=== PATIENT | female | born 1935 | race Caucasian/White ===

== ENCOUNTER 2021-07-17 12:33 | Inpatient (IN) | payer OTHER ==
[2021-07-17] MEDS ORDERED: NALOXONE HCL 2 MG/2 ML VIAL ONE (12:35)
--- OUTSIDE RECORDS SUMMARY | 2021-07-17 12:37 | XMS REPORT | Continuity of Care Document ---
:1935 Author Organization [facility] t Address [address] [place] [address] Care Team Providers Name Role Phone Ilana Primary Care Physician Sara HERNANDEZ Attending Clinician Unavailable Jarrell DILL, S Attending Clinician Gil FRANCIS L Attending Clinician Arabella JIMENEZ Attending Clinician Unavailable Payers Payer Name Policy Type Policy Number Effective Date Expiration Date [facility] [id number] 2020 [facility] 00:00:00 PPO Problems Condition Condition Condition Status Onset Resolution Last Treating Co mments Source Name Details Category Date Date Treatment Clinician Date Elevated Elevated Disease Active 2020-07 Unive rs brain brain 0-11 ity of natriure[place] nat[place]ure[place] c peptide c peptide 00 Medi lalo (BNP) (BNP) Branch level level Closed Closed Disease Active 2020-07 [facility] left hip left hip 0-06 [place] of fracture[place], [place] initial 00 Medical encounter encounter Bran ch Encounter Encounter Disease Active 2020-07 Uni vers for for 0-06 ity of pre-operat pre-operat 00:00[place] samreen samreen 00 Medical cardiovasc cardiovasc Br anch ular ular clearance clearance Nonrheumat Nonrheumat Disease Active 2020-07 U nivers ic aortic ic aortic 0-06 ity of valve valve 00:00: [place] stenosis stenosis 00 Medica l Branch Essential Essential Disease Active 2020-07 Uni vers hypertensi hypertensi 0-06 it y of on on 00:00: [place] [facility] 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 0-06 [place]y of thrombosis thrombosis 00:00: [place] (DVT) (DVT) 00 Medical Branch Acute Acute Disease Active 2020-07 Univers kidney kidney 0-06 ity of injury injury 00:00: [place] superimpos superimpos 00 Me dical ed on CKD ed on CKD Bran ch Fall Fall Disease Active 2019-07 Univers 2-11 ity of 00:00: [place] [facility] Hip Hip Disease Active 2019-07 Univers fracture fracture 2-11 ity of 00:00: [place] [facility] Closed Closed Disease Active 2019-07 Overview: Univer s displaced displaced 2-10 Formattin i ty of fracture fracture 00:00: g of this Josh as of right of right 00 note Medica l femoral femoral might be Branch neck neck different from the original. Added automatic ally from request for surgery [id number] Age-relate Age-relate Disease Active U nivers d d ity of osteoporos osteoporos [place] is with is with Medical current current Branch pathologic pathologic al al fracture fracture with with routine routine healing healing Allergies, Adverse Reactions, Alerts Allergy Allergy Status Severity Reaction(s) Onset Inactive Treating Comm ents Source Name Type Date Date Clinician Levoflox Propensi Active Unknown - Uni vers acin ty to See comments 7-17 ity of adverse 00:00: [place] reaction 00 Medical s Branch Penicill Propensi Active Unknown - Uni vers ins ty to See comments 7-17 ity of adverse 00:00: [place] reaction 00 Medical s Branch LEVOFLOX DRUG Active Unknown-Cmnt [place] ACIN INGREDI 7-17 ity of 00:00: [place] [facility] PENICILL Drug Active Unknown-Cmnt 2017-0 [place] INS Class 7-17 ity of 00:00: [place] [facility] Social History Social Habit Start Date Stop Date Quantity Comments Source Exposure to Not sure [facility] SARS-CoV-2 [place] Medical (event) Branch Alcohol intake 2021-07-03 2021-07-03 Current [facility] 00:00:00 00:00:00 non-drinker of [facility] alcohol Branch (finding) Education 2021-05-03 2021-05-03 21 University of 00:00:00 00:00:00 [facility] Tobacco use and 2018-02-11 2018-02-11 Never used Universit y of exposure 00:00:00 00:00:00 [facility] Sex Ass[birth year] At [birth year] Universit y of 00:00:00 00:00:00 [facility] Smoking Status Start Date Stop Date Source Never smoker [facility] [place] [facility] Medications Ordered Filled Start Stop Current Ordering Indication Dosage Frequency Signature Comments Components Source Medication Medication Date Date Medication? Clinician (SIG) Name Name warfarin 2020-07 Yes 1mg Take 1 mg [place] mg tablet 0-15 by mouth ity of 01:25: every [place] 03 evening. Medical Branch memantine 2020-07 Yes 8mg Take 8 mg Uni vers HCl 0-15 by mouth. ity of (MEMANTINE 01:25: [place] ORAL) 03 Medical Branch acetaminoph 2020-07 Yes Take by [place] en with 0-15 mouth ity of codeine 01:25: daily. [place] (TYLENOL-CO 03 Medical DEINE #3 Branch ORAL) ferrous 2020-07 Yes 325mg Take 325 Unive rs sulfate 0-15 mg by ity of (IRON) 325 01:25: mouth 3 [place] mg (65 mg 03 (three) Medical iron) times Branch tablet daily with meals. vitamin C 2020-07 Yes 100mg Take 100 Uni vers (VITAMIN C) 0-15 mg by ity of 100 mg 01:25: mouth [place] tablet 03 daily. Medical Branch Folcroft-3-DHA 2020-07 Yes Take by [place] -EPA-Fish 0-15 mouth ity of Oil (FISH 01:25: daily. [place] OIL) 1,200 03 Medical (144-216) Branch mg Cap tamsulosin 2020-07 Yes Take by Uni vers (FLOMAX) 0-15 mouth as ity of 0.4 mg 24 01:25: needed for [place] hr capsule 03 Other Medical (chronic Branch kidney stones.). warfarin 2020-07 Yes 1mg Take 1 mg [place] mg tablet 0-15 by mouth ity of 01:25: every [place] 03 evening. Medical Branch memantine 2020-07 Yes 8mg Take 8 mg Uni vers HCl 0-15 by mouth. ity of (MEMANTINE 01:25: [place] ORAL) 03 Medical Branch acetaminoph 2020-07 Yes Take by [place] en with 0-15 mouth ity of codeine 01:25: daily. [place] (TYLENOL-CO 03 Medical DEINE #3 Branch ORAL) ferrous 2020-07 Yes 325mg Take 325 Unive rs sulfate 0-15 mg by ity of (IRON) 325 01:25: mouth 3 [place] mg (65 mg 03 (three) Medical iron) times Branch tablet daily with meals. vitamin C 2020-07 Yes 100mg Take 100 Uni vers (VITAMIN C) 0-15 mg by ity of 100 mg 01:25: mouth [place] tablet 03 daily. Medical Branch Folcroft-3-DHA 2020-07 Yes Take by [place] -EPA-Fish 0-15 mouth ity of Oil (FISH 01:25: daily. [place] OIL) 1,200 03 Medical (144-216) Branch mg Cap tamsulosin 2020-07 Yes Take by Uni vers (FLOMAX) 0-15 mouth as ity of 0.4 mg 24 01:25: needed for [place] hr capsule 03 Other Medical (chronic Branch kidney stones.). warfarin 1 2020-07 Yes 1mg Take 1 mg [place] mg tablet 0-15 by mouth ity of 01:25: every [place] 03 evening. Medical Branch memantine 2020-07 Yes 8mg Take 8 mg Uni vers HCl 0-15 by mouth. ity of (MEMANTINE 01:25: [place] ORAL) 03 Medical Branch acetaminoph 2020-07 Yes Take by [place] en with 0-15 mouth ity of codeine 01:25: daily. [place] (TYLENOL-CO 03 Medical DEINE #3 Branch ORAL) ferrous 2020-07 Yes 325mg Take 325 Unive rs sulfate 0-15 mg by ity of (IRON) 325 01:25: mouth 3 [place] mg (65 mg 03 (three) Medical iron) times Branch tablet daily with meals. vitamin C 2020-07 Yes 100mg Take 100 Uni vers (VITAMIN C) 0-15 mg by ity of 100 mg 01:25: mouth [place] tablet 03 daily. Medical Branch Folcroft-3-DHA 2020-07 Yes Take by [place] -EPA-Fish 0-15 mouth ity of Oil (FISH 01:25: daily. [place] OIL) 1,200 03 Medical (144-216) Branch mg Cap tamsulosin 2020-07 Yes Take by Uni vers (FLOMAX) 0-15 mouth as ity of 0.4 mg 24 01:25: needed for [place] hr capsule 03 Other Medical (chronic Branch kidney stones.). latanoprost 2020-07 Yes 1[drp] Place 1 U nivers 0.005 % 0-13 Drop in ity of ophthalmic 13:41: both eyes [place] drops 45 every Medical evening. Branch pantoprazol 2020-07 Yes 40mg Take 40 mg Univers e 40 mg EC 0-13 by mouth ity o f tablet 13:41: daily. [place] [address] Medical Branch metoprolol 2020-07 Yes 100mg Take 100 [place] succinate 0-13 mg by ity of XL 100 mg 13:41: mouth [place] 24 hr 45 daily. Medical tablet Branch galantamine 2020-07 Yes 12mg Take 12 mg Univers 12 mg 0-13 by mouth 2 ity of tablet 13:41: (two) [place] 45 times Medical daily. Branch multivit 2020-07 Yes 1{tbl} Take 1 Unive rs with 0-13 tablet by ity of calcium,iro 13:41: mouth [place] n,min 45 daily. Medical (WOMEN'S Branch MULTIPLE VITAMINS ORAL) SERTraline 2020-07 Yes 25mg Take 25 mg U nivers 25 mg 0-13 by mouth ity of tablet 13:41: daily. [place] [address] Medical Branch latanoprost 2020-07 Yes 1[drp] Place 1 U nivers 0.005 % 0-13 Drop in ity of ophthalmic 13:41: both eyes [place] drops 45 every Medical evening. Branch pantoprazol 2020-07 Yes 40mg Take 40 mg Univers e 40 mg EC 0-13 by mouth ity o f tablet 13:41: daily. [place] 45 Medical Branch metoprolol 2020-07 Yes 100mg Take 100 [place] succinate 0-13 mg by ity of XL 100 mg 13:41: mouth [place] 24 hr 45 daily. Medical tablet Branch galantamine 2020-07 Yes 12mg Take 12 mg Univers 12 mg 0-13 by mouth 2 ity of tablet 13:41: (two) [place] 45 times Medical daily. Branch multivit 2020-07 Yes 1{tbl} Take 1 Unive rs with 0-13 tablet by ity of calcium,iro 13:41: mouth [place] n,min 45 daily. Medical (WOMEN'S Branch MULTIPLE VITAMINS ORAL) SERTraline 2020-07 Yes 25mg Take 25 mg U nivers 25 mg 0-13 by mouth ity of tablet 13:41: daily. [address] latanoprost 2020-07 Yes 1[drp] Place 1 U nivers 0.005 % 0-13 Drop in ity of ophthalmic 13:41: both eyes [place] drops 45 every Medical evening. Branch pantoprazol 2020-07 Yes 40mg Take 40 mg Univers e 40 mg EC 0-13 by mouth ity o f tablet 13:41: daily. [address] metoprolol 2020-07 Yes 100mg Take 100 [place] succinate 0-13 mg by ity of XL 100 mg 13:41: mouth [place] 24 hr 45 daily. Medical tablet Branch galantamine 2020-07 Yes 12mg Take 12 mg Univers 12 mg 0-13 by mouth 2 ity of tablet 13:41: (two) [place] 45 times Medical daily. Branch multivit 2020-07 Yes 1{tbl} Take 1 Unive rs with 0-13 tablet by ity of calcium,iro 13:41: mouth [place] n,min 45 daily. Medical (WOMENS Branch MULTIPLE VITAMINS ORAL) SERTraline 2020-07 Yes 25mg Take 25 mg U nivers 25 mg 0-13 by mouth ity of tablet 13:41: daily. [address] Immunizations Ordered Filled Immunization Date Status Comments [facility] e Immunization Name Name Pneumococcal 2021-05-10 Completed University o f Polysaccharide, 00:00:00 [place] Med ical PPSV23 (PNEUMOVAX) Branch Pneumococcal 2021-05-10 Completed [place] o f Polysaccharide, 00:00:00 [place] Med ical PPSV23 (PNEUMOVAX) Branch Pneumococcal 2021-05-10 Completed [place] o f Polysaccharide, 00:00:00 [place] Med ical PPSV23 (PNEUMOVAX) Branch Vital Signs Vital Name Observation Time Observation Value Comments Source Body height 2021-05-18 14:37:00 165 cm [facility] Body weight 2021-05-18 14:37:00 77.111 kg [facility] BMI 2021-05-18 14:37:00 28.32 kg/m2 Universi ty [facility] Procedures This patient has no known procedures. Encounters Start End Encounter Admission Attending Care Care Encounter Source Date/Time Date/Time Type Type Clinicians Facility Department ID 2021-07-03 2021-07-03 Outpatient R JARRELL [facility] [id number] Univers 14:05:00 23:59:00 FR[facility] 2021-07-03 2021-07-[address] [facility] [id number] Univers 14:05:00 23:59:00 Encounter Fran ZAPATA [id number] [facility] [id number] Josh as KALYAN?BLEA [id number] Al kelli RUVALCABA [id number] [facility] 2021-07-03 2021-07-03 [id number] Univers 14:05:00 14:05:00 FRAN [id number] [facility] 2021-05-18 2021-05-[address] [facility] [id number] Univers 09:30:00 09:45:00 Visit Nathaniel Bell [facility] [id number] it y of [place] [id number] Josh as KALYAN?BLEA [id number] Al kelli RUVALCABA [id number] [facility] 2021-05-18 2021-05-18 [facility] [id number] Univers 09:30:00 09:30:00 NATHANIEL [facility] Results This patient has no known results.
[2021-07-17] MEDS ORDERED: NA CHLORIDE 0.9% 1,000 ML ONE ×2 (12:44→14:18)
[2021-07-17 13:09] LABS: Absolute Lymphocytes (CBC) 1.4 K/uL (0.7-4.9); Basophils % 0.1 % (0-1.3); Hematocrit 37.7 % (36.0-45.0); Lymphocytes % 2.9 % (15.3-44.8); RBC Red Blood Cell Count 4.14 M/uL (3.86-4.86)
[2021-07-17 13:18] LABS: Protime INR 1.71
[2021-07-17 13:32] LABS: Albumin 1.6 g/dL (3.4-5.0); Bilirubin Direct 0.2 mg/dL (0-0.2); Bilirubin Total 0.6 mg/dL (0.2-1.0); Protein, Total 5.2 g/dL (6.4-8.2); Troponin (Emerg Dept Use Only) 0.31 ng/mL (0.0-0.045)
[2021-07-17 13:34] LABS: Potassium 2.8 mmol/L (3.5-5.1)
[2021-07-17 13:48] LABS: Urine Blood Negative (Negative); Urine Glucose Negative (Negative); Urine Protein 1+ (Negative)
[2021-07-17 14:04] LABS: Urine Amorphous Sediment 1+ /HPF (NONE SEEN); Urine Bacteria 20-50 /HPF (<20); Urine Mucus 2+ /HPF (NONE SEEN); Urine RBC <5 /HPF (NONE SEEN); Urine Urothelial Cells <5 /HPF (NONE SEEN)
[2021-07-17] MEDS ORDERED: CEFEPIME 1 GM/VIAL ONE (14:18)
[2021-07-17] MEDS ORDERED: VANCOMYCIN 1 GM/VIAL ONE (14:18)
--- NOTE | 2021-07-17 14:18 | EDPHYS ---
Physician Documentation [facility] Name: Laura Del Castillo Age: 85 yrs Sex: Female : 1935 Arrival Date: 07/17/2021 Time: 12:40 Bed 2 Private MD: ED Physician Joce Austin HPI: 07/17 14:03 This 85 yrs old Female presents to ER via EMS with complaints of Diarrhea/Hypotension. jr8 14:07 Is a 85-year-old female that presented to the emergency room via EMS after being jr8 calling out by the [place] [facility] for continued diarrhea with altered mentation now. EMS stated that she was hypotensive on scene. Patient arrived in the 60s systolic upon arrival with minimal responsiveness but maintaining airway. They stated that she had Tylenol 3 at the [place] [facility] as well prior to arrival but unknown at what time.. It is unknown whether or not the patient has had similar symptoms in the past. It is unknown whether or not the patient has recently seen a physician. Historical: - Allergies: 12:51 Penicillins; al4 12:51 levaquin; al4 - Immunization history:: Adult Immunizations unknown. - Social history:: Smoking status: unknown. ROS: 14:07 Unable to obtain ROS due to altered mental status, baseline dementia. jr8 Exam: 14:07 Neck: Trachea midline, no thyromegaly or masses palpated, and no cervical jr8 lymphadenopathy. Supple, full range of motion Cardiovascular: Regular rate and rhythm with a normal S1 and S2. No gallops, murmurs, or rubs. Normal PMI, no JVD. No pulse deficits. Respiratory: Lungs have equal breath sounds bilaterally, clear to auscultation and percussion. No rales, rhonchi or wheezes noted. No increased work of breathing, no retractions or nasal flaring. Abdomen/GI: Soft with normal bowel sounds. No distension or tympany. Skin: Warm, dry with normal turgor. Normal color with no rashes, no lesions, and no evidence of cellulitis. Small sacral decubitus wound to the buttock noted MS/ Extremity: Pulses equal, no cyanosis. Neurovascular intact. Full, normal range of motion. 14:07 Eyes: Pupils: pinpoint, bilaterally, Extraocular movements: intact throughout, Conjunctiva: normal, Corneas: are normal, Sclera: no appreciated abnormality, Lids and lashes: appear normal. 14:07 Neuro: Orientation: Not oriented to person, place, time, situation, Mentation: unable to follow commands, Memory: unable to test, Motor: moves all fours, Sensation: no obvious gross deficits, seizure activity, is not displayed by the patient, Abnormal movements: there are no abnormal movements. Vital Signs: 12:41 BP 64 / 31; Pulse 94; Resp 20; Temp 98.0; al4 12:50 BP 95 / 52; Pulse 114; Resp 30 S; Pulse Ox 94% on R/A; al4 12:57 BP 95 / 52; jd3 13:00 BP 83 / 47; Pulse 112; Resp 28 S; Pulse Ox 97% on R/A; al4 13:35 BP 91 / 41; Pulse 101; Resp 24 S; Pulse Ox 99% on R/A; al4 13:45 BP 86 / 49; Pulse 113; Resp 24 S; Pulse Ox 95% on R/A; al4 13:55 BP 95 / 52; Pulse 109; Resp 23 S; Pulse Ox 100% on R/A; al4 14:05 BP 98 / 53; Pulse 109; Resp 22 S; Pulse Ox 98% on R/A; al4 14:20 BP 91 / 51; Pulse 105; Resp 22 S; Pulse Ox 97% on R/A; al4 14:30 BP 88 / 47; Pulse 114; Resp 23 S; Pulse Ox 95% on R/A; al4 14:40 BP 85 / 49; Pulse 108; Resp 18 S; Pulse Ox 97% on R/A; al4 14:50 BP 93 / 54; Pulse 103; Resp 12 S; Pulse Ox 97% on R/A; al4 15:00 BP 85 / 55; Pulse 107; Resp 20 S; Pulse Ox 98% on R/A; al4 15:30 BP 87 / 63; Pulse 107; Resp 22 S; Pulse Ox 94% on R/A; al4 16:00 BP 81 / 55; Pulse 108; Resp 19; Pulse Ox 97% ; al4 16:30 BP 107 / 67; Pulse 120; Resp 17 S; Pulse Ox 98% on R/A; al4 16:50 BP 96 / 57; Pulse 136; Resp 18 S; Pulse Ox 98% on R/A; al4 17:25 BP 85 / 68; Pulse 136; Resp 19 S; Pulse Ox 97% on R/A; al4 17:45 BP 109 / 67; Pulse 144; Resp 18 S; Pulse Ox 95% on R/A; al4 18:15 BP 94 / 67 LA Supine (auto/reg); Pulse 118 MON; mb4 18:25 BP 98 / 64; Pulse 119; Resp 18 S; Pulse Ox 96% on R/A; al4 18:45 BP 105 / 56; Pulse 123; Resp 20 S; Pulse Ox 95% on R/A; al4 19:05 BP 100 / 80; Pulse 120; Resp 18 S; Pulse Ox 97% on R/A; al4 13:00 provider at bedside, aware of BP al4 MDM: 12:42 Patient medically screened. [facility] 14:16 Data reviewed: vital signs, nurses notes, lab test result(s), EKG, radiologic studies, [facility] CT scan, plain films. Data interpreted: Pulse oximetry: on room air is 98 %. Interpretation: normal. Counseling: I had a detailed discussion with the patient and/or guardian regarding: the historical points, exam findings, and any diagnostic results supporting the discharge/admit diagnosis, lab results, radiology results, the need for further work-up and treatment in the hospital. 07/17 12:43 Order name: Basic Metabolic Panel; Complete Time: 13:56 [facility] 07/17 12:43 Order name: Blood Culture Adult (2) [facility] 07/17 12:43 Order name: CBC with Diff; Complete Time: 16:54 [facility] 07/17 12:43 Order name: CPK; Complete Time: 13:56 [facility] 07/17 12:43 Order name: LFT's; Complete Time: 13:56 [facility] 07/17 12:43 Order name: Lactate; Complete Time: 13:56 [facility] 07/17 12:43 Order name: Lipase; Complete Time: 13:56 [facility] 07/17 12:43 Order name: Procalcitonin; Complete Time: 13:56 [facility] 07/17 12:43 Order name: Protime (+inr); Complete Time: 13:56 [facility] 07/17 12:43 Order name: Ptt, Activated; Complete Time: 13:56 [facility] 07/17 12:43 Order name: Troponin (emerg Dept Use Only); Complete Time: 13:56 [facility] 07/17 12:43 Order name: Urine Microscopic Only; Complete Time: 14:10 [facility] 07/17 12:52 Order name: Fecal Leukocyte Stain [facility] 07/17 12:52 Order name: Rotavirus Antigen [facility] 07/17 12:43 Order name: Chest Single View XRAY; Complete Time: 14:33 [facility] 07/17 12:52 Order name: Stool Culture [facility] 07/17 12:52 Order name: CDIFF [facility] 07/17 13:17 Order name: Manual Differential; Complete Time: 16:54 [facility] 07/17 13:48 Order name: Urine Dipstick-Ancillary; Complete Time: 13:56 [facility] 07/17 14:06 Order name: Urine Culture [facility] 07/17 14:12 Order name: CT Abd/Pelvis - Without Contrast; Complete Time: 17:39 [facility] 07/17 14:42 Order name: COVID-19 SARS RT PCR (Document "Date of Onset" if Symptomatic); Complete [facility] Time: 16:24 07/17 16:05 Order name: XRAY Chest (1 view); Complete Time: 17:06 [facility] 07/17 17:21 Order name: Lactate Sepsis 2 HR Follow-up; Complete Time: 17:31 [facility] 07/17 12:43 Order name: Accucheck; Complete Time: 12:56 [facility] 07/17 12:43 Order name: Cardiac monitoring; Complete Time: 12:56 [facility] 07/17 12:43 Order name: Cath; Complete Time: 13:39 [facility] 07/17 12:43 Order name: EKG - Nurse/Tech; Complete Time: 12:56 [facility] 07/17 12:43 Order name: IV Saline Lock - Large Bore; Complete Time: 12:56 [facility] 07/17 12:43 Order name: Labs collected and sent; Complete Time: 12:56 [facility] 07/17 12:43 Order name: O2 Per Protocol; Complete Time: 12:56 [facility] 07/17 12:43 Order name: O2 Sat Monitoring; Complete Time: 12:56 [facility] 07/17 12:43 Order name: Urine Dipstick-Ancillary (obtain specimen); Complete Time: 19:26 [facility] 07/17 17:11 Order name: Social Service Consult EDMS Administered Medications: 17:54 Discontinued: Levophed (norepinephrine) (4 mg/250 mL D5W 4 mcg/min IV at calculated al4 rate Per protocol; (final concentration is 16 microgram/mL) 12:43 Drug: NARcan (naloxone) 2 mg Route: IVP; Site: right hand; jd3 13:40 Follow up: Response: No adverse reaction; RASS: Alert and Calm (0) al4 12:45 Drug: NS 0.9% 1000 ml Route: IV; Rate: 1000 ml; Site: right hand; jd3 13:43 Follow up: Response: No adverse reaction; IV Status: Completed infusion al4 12:45 Drug: NS 0.9% 1000 ml Route: IV; Rate: 1000 ml; Site: left wrist; jd3 13:43 Follow up: Response: No adverse reaction; IV Status: Completed infusion al4 14:46 Drug: NS 0.9% 1000 ml Route: IV; Rate: 1000 ml; Site: right antecubital; al4 15:45 Follow up: Response: No adverse reaction; IV Status: Completed infusion al4 16:29 Drug: Levophed (norepinephrine) (4 mg/250 mL D5W 4 mcg/min Route: IV; Rate: calculated al4 rate; Site: right subclavian; 17:54 Follow up: Response: heart rate elevated; IV Status: Order to discontinue infusion al4 16:30 Drug: Cefepime 1 grams Route: IVPB; Rate: 200 ml/hr; Infused Over: 30 mins; Site: right al4 hand; 17:00 Follow up: Response: No adverse reaction; IV Status: Completed infusion al4 16:35 Drug: Potassium Chloride 20 mEq Route: IV; Rate: calculated rate; Site: right al4 subclavian; 18:35 Follow up: Response: No adverse reaction; IV Status: Completed infusion al4 17:15 Drug: vancoMYCIN 1 grams Route: IVPB; Infused Over: 2 hrs; Site: left wrist; al4 19:00 Follow up: Response: No adverse reaction; IV Status: Completed infusion as6 17:55 Drug: Franck-Synephrine (phenylephrine) 100 mcg/min Route: IV; Rate: calculated rate; al4 Site: right subclavian; Disposition: 07/18 18:57 Co-signature as Attending Physician, Joce FRANCIS I agree with the assessment and adrianna plan of care. Disposition Summary: 07/17/21 14:17 Hospitalization Ordered Hospitalization Status: Inpatient Admission jr8 Provider: Rajan Lovelace jr8 Location: Intensive Care Unit jr8 Condition: Fair jr8 Problem: new jr8 Symptoms: have improved jr8 Bed/Room Type: Standard 8 Room Assignment: 3-(07/17/21 19:05) dw Diagnosis - Severe sepsis with septic shock jr8 - Acute kidney failure, unspecified jr8 - Hypokalemia jr8 Forms: - Medication Reconciliation Form jr8 - SBAR form jr8 Signatures: Dispatcher [employer] Lexus Saab RN RN Joce Yen MD MD cha Roszak, Josh, PA PA jr8 Laureano Crowe RN RN Jorge L Btaista Ashby RN as6 Corrections: (The following items were deleted from the chart) 07/17 19:05 14:17 jr8 dw
--- NOTE | 2021-07-17 14:18 | ER ---
Nurse's Notes [facility] Name: Laura Del Castillo Age: 85 yrs Sex: Female : 1935 Arrival Date: 07/17/2021 Time: 12:40 Bed 2 Private MD: Diagnosis: Severe sepsis with septic shock;Acute kidney failure, unspecified;Hypokalemia Presentation: 07/17 12:41 Chief complaint: EMS states: "patient is coming from [facility] for altered al4 mental status. patient has had diarrhea for 3 days. patient is hypotensive so we started fluids on the way over. patient was given Tylenol 3 prior to us being called, unknown time of administration. patient is on a blood thinner. blood glucose was 219, HR 130. patient had a recent hip L hip fracture and skilled nursing states that the Tylenol 3 is what they have been giving her for pain.". Coronavirus screen: At this time, the client does not indicate any symptoms associated with coronavirus-19. Ebola Screen: No symptoms or risks identified at this time. Initial Sepsis Screen:. Initial Sepsis Screen: Does the patient meet any 2 criteria? RR > 20 per min. Mean Arterial Pressure (MAP) < 65. Altered Mental Status. HR > 90 bpm. Does the patient have a suspected source of infection? No. Patient's initial sepsis screen is negative. Risk Assessment: Do you want to hurt yourself or someone else? Unable to obtain. Onset of symptoms was July 17, 2021. 12:41 Method Of Arrival: EMS: [facility] al4 12:41 Acuity: PAPO 2 al4 Historical: - Allergies: 12:51 Penicillins; al4 12:51 levaquin; al4 - Immunization history:: Adult Immunizations unknown. - Social history:: Smoking status: unknown. Screenin:48 Abuse screen: Denies threats or abuse. Nutritional screening: No deficits noted. al4 Tuberculosis screening: No symptoms or risk factors identified. 18:48 Fall Risk Fall in past 12 months (25 points). IV access (20 points). Ambulatory Aid- al4 None/Bed Rest/Nurse Assist (0 pts). Gait- Weak (10 pts.). Mental Status- Overestimates/Forgets Limitations (15 pts.). Total Herrera Fall Scale indicates High Risk Score (45 or more points). Assessment: 12:45 General: Appears ill, Behavior is flat, listless. Pain: Unable to use pain scale. al4 Patient is disoriented. Neuro: Level of Consciousness is stuporous, responsive to pain . Oriented to none Pupils are pinpoint. Cardiovascular: Heart tones present Capillary refill < 3 seconds. Respiratory: Airway is patent Respiratory effort is even, unlabored, Respiratory pattern is symmetrical, tachypnea Breath sounds are clear bilaterally. 12:45 GI: Abdomen is non-distended, Stools are reported to be loose, diarrhea. Last BM was al4 July 17, 2021. Bowel sounds present X 4 quads. Abd is soft and non tender X 4 quads. : No signs and/or symptoms were reported regarding the genitourinary system. EENT: No signs and/or symptoms were reported regarding the EENT system. Derm: sacral pressure injury and right heel bruise. Musculoskeletal: No signs and/or symptoms reported regarding the musculoskeletal system. 13:45 Reassessment: patient cleaned up after BM by ED staff. gown and linens changed. warm al4 blanket given. 13:45 Reassessment: No changes from previously documented assessment. al4 14:00 Reassessment: Critical BP noted. Provider notified. waiting for CL placement to give al4 meds. 14:45 Reassessment: Patient and/or family updated on plan of care and expected duration. Pain al4 level reassessed. patient is more alert than the initial assessment. complaints of pain in right heel. questions answered. . 14:45 Neuro: Level of Consciousness is awake, alert, obeys commands, Oriented to person, al4 Pupils are PERRLA. Respiratory: Airway is patent Respiratory effort is even, unlabored, Respiratory pattern is symmetrical, tachypnea. 15:45 Reassessment: No changes from previously documented assessment. al4 16:40 Reassessment: family at bedside. al4 16:45 Reassessment: No changes from previously documented assessment. Patient and/or family al4 updated on plan of care and expected duration. Pain level reassessed. 17:25 Reassessment: tachycardia noted. provider notified. al4 17:40 Reassessment: provider ordered a medication change. waiting for pharmacy to send it up. al4 17:45 Reassessment: No changes from previously documented assessment. Patient and/or family al4 updated on plan of care and expected duration. Pain level reassessed. patient states she is comfortable. . 18:45 Reassessment: No changes from previously documented assessment. Patient and/or family al4 updated on plan of care and expected duration. Pain level reassessed. family still at bedside. . Vital Signs: 12:41 BP 64 / 31; Pulse 94; Resp 20; Temp 98.0; al4 12:50 BP 95 / 52; Pulse 114; Resp 30 S; Pulse Ox 94% on R/A; al4 12:57 BP 95 / 52; jd3 13:00 BP 83 / 47; Pulse 112; Resp 28 S; Pulse Ox 97% on R/A; al4 13:35 BP 91 / 41; Pulse 101; Resp 24 S; Pulse Ox 99% on R/A; al4 13:45 BP 86 / 49; Pulse 113; Resp 24 S; Pulse Ox 95% on R/A; al4 13:55 BP 95 / 52; Pulse 109; Resp 23 S; Pulse Ox 100% on R/A; al4 14:05 BP 98 / 53; Pulse 109; Resp 22 S; Pulse Ox 98% on R/A; al4 14:20 BP 91 / 51; Pulse 105; Resp 22 S; Pulse Ox 97% on R/A; al4 14:30 BP 88 / 47; Pulse 114; Resp 23 S; Pulse Ox 95% on R/A; al4 14:40 BP 85 / 49; Pulse 108; Resp 18 S; Pulse Ox 97% on R/A; al4 14:50 BP 93 / 54; Pulse 103; Resp 12 S; Pulse Ox 97% on R/A; al4 15:00 BP 85 / 55; Pulse 107; Resp 20 S; Pulse Ox 98% on R/A; al4 15:30 BP 87 / 63; Pulse 107; Resp 22 S; Pulse Ox 94% on R/A; al4 16:00 BP 81 / 55; Pulse 108; Resp 19; Pulse Ox 97% ; al4 16:30 BP 107 / 67; Pulse 120; Resp 17 S; Pulse Ox 98% on R/A; al4 16:50 BP 96 / 57; Pulse 136; Resp 18 S; Pulse Ox 98% on R/A; al4 17:25 BP 85 / 68; Pulse 136; Resp 19 S; Pulse Ox 97% on R/A; al4 17:45 BP 109 / 67; Pulse 144; Resp 18 S; Pulse Ox 95% on R/A; al4 18:15 BP 94 / 67 LA Supine (auto/reg); Pulse 118 MON; mb4 18:25 BP 98 / 64; Pulse 119; Resp 18 S; Pulse Ox 96% on R/A; al4 18:45 BP 105 / 56; Pulse 123; Resp 20 S; Pulse Ox 95% on R/A; al4 19:05 BP 100 / 80; Pulse 120; Resp 18 S; Pulse Ox 97% on R/A; al4 13:00 provider at bedside, aware of BP al4 ED Course: 12:40 Patient arrived in ED. al4 12:42 Michael Isidro PA is PHCP. jr8 12:42 Joce Austin MD is Attending Physician. jr8 12:45 Side rails up X2. mb4 12:51 Triage completed. al4 12:54 cafeteria monitor on. Pulse ox on. NIBP on. mb4 12:55 Initial lab(s) drawn, by nh, EKG done, by ED staff, reviewed by Michael BURGOS. mb4 Maintain EMS IV. Dressing intact. Good blood return noted. Site clean \\T\\ dry. Gauge \\T\\ site: 22g right hand. 13:00 Arm band placed on. al4 13:00 Inserted saline lock: 20 gauge in left wrist, using aseptic technique. ,using aseptic al4 technique. inserted by ED medical staffing coordinator 13:36 Chest Single View XRAY In Process Unspecified. EDMS 13:45 Dressings: non-adherent dressing x 1 buttocks. Rocha cath inserted, using sterile mb4 technique, 16 Fr., by ED staff, balloon inflated, to gravity drainage, clamped. urine specimen collected. 13:47 Lights dimmed. Warm blanket given. Verbal reassurance given. Cleaned of incontinence. mb4 Linen changed. 14:16 Rajan Lovelace DO is Hospitalizing Provider. jr8 15:03 Warm blanket given. mb4 15:03 COVID swab sent to lab. mb4 16:21 XRAY Chest (1 view) In Process Unspecified. EDMS 16:29 Jorge L Griffin is Primary Nurse. al4 16:37 Assisted provider with central line placement. Set up central line tray. Triple lumen al4 line placed in right subclavian. Line placed by Michael BURGOS Placement verified by CXR, blood return, Dressed with Tegaderm, Blood was collected. Patient tolerated well. 17:15 CT Abd/Pelvis - Without Contrast In Process Unspecified. EDMS 18:14 Bed in low position. Side rails up X2. Warm blanket given. Verbal reassurance given. mb4 glycerin swabs provided to the family for the patient. 19:10 Report given to card table attendant RN. al4 20:14 Patient admitted, IV remains in place. as6 Administered Medications: 17:54 Discontinued: Levophed (norepinephrine) (4 mg/250 mL D5W 4 mcg/min IV at calculated al4 rate Per protocol; (final concentration is 16 microgram/mL) 12:43 Drug: NARcan (naloxone) 2 mg Route: IVP; Site: right hand; jd3 13:40 Follow up: Response: No adverse reaction; RASS: Alert and Calm (0) al4 12:45 Drug: NS 0.9% 1000 ml Route: IV; Rate: 1000 ml; Site: right hand; jd3 13:43 Follow up: Response: No adverse reaction; IV Status: Completed infusion al4 12:45 Drug: NS 0.9% 1000 ml Route: IV; Rate: 1000 ml; Site: left wrist; jd3 13:43 Follow up: Response: No adverse reaction; IV Status: Completed infusion al4 14:46 Drug: NS 0.9% 1000 ml Route: IV; Rate: 1000 ml; Site: right antecubital; al4 15:45 Follow up: Response: No adverse reaction; IV Status: Completed infusion al4 16:29 Drug: Levophed (norepinephrine) (4 mg/250 mL D5W 4 mcg/min Route: IV; Rate: calculated al4 rate; Site: right subclavian; 17:54 Follow up: Response: heart rate elevated; IV Status: Order to discontinue infusion al4 16:30 Drug: Cefepime 1 grams Route: IVPB; Rate: 200 ml/hr; Infused Over: 30 mins; Site: right al4 hand; 17:00 Follow up: Response: No adverse reaction; IV Status: Completed infusion al4 16:35 Drug: Potassium Chloride 20 mEq Route: IV; Rate: calculated rate; Site: right al4 subclavian; 18:35 Follow up: Response: No adverse reaction; IV Status: Completed infusion al4 17:15 Drug: vancoMYCIN 1 grams Route: IVPB; Infused Over: 2 hrs; Site: left wrist; al4 19:00 Follow up: Response: No adverse reaction; IV Status: Completed infusion as6 17:55 Drug: Franck-Synephrine (phenylephrine) 100 mcg/min Route: IV; Rate: calculated rate; al4 Site: right subclavian; Outcome: 14:17 Decision to Hospitalize by Provider. jr8 19:23 Admitted to ICU Report called to Attempted to call report. YUDITH Parson will be the lele receiving nurse. RN is to dc another pt, before she is to receive this pt. 20:14 Condition: stable as6 20:14 Patient left the ED. as6 Signatures: Dispatcher [employer] EDMS Michael Isidro PA PA jr8 Laureano Crowe RN RN jd3 Baxter, Mackenzie mb4 Slawson, Ashby, RN RN as6 Jorge L Griffin Brenda, RN RN bo Corrections: (The following items were deleted from the chart) 12:55 12:54 Side rails up X2. mb4 mb4 18:04 12:45 Respiratory: Airway is patent Respiratory effort is even, unlabored, Respiratory al4 pattern is symmetrical, tachypnea al4 18:38 17:25 Reassessment: tachycardia noted. provider notified. provider assessed patient and al4 ordered a medication change al4 19:13 19:05 BP 100 / 80; Pulse 120bpm; Resp 18bpm; Spontaneous; Pulse Ox 97% RA; al4 al4 19:14 19:05 BP 100 / 80; Pulse 120bpm; Resp 18bpm; Spontaneous; Pulse Ox 97% RA; al4 al4 19:20 13:45 Reassessment: al4 al4 19:20 13:45 Reassessment: al4 al4 19:20 14:45 Reassessment: Patient and/or family updated on plan of care and expected al4 duration. Pain level reassessed. patient is more alert than the initial assessment. complaints of pain in right heel. questions answered. . al4 19:23 13:00 BP 83 / 47; Pulse 112bpm; Resp 28bpm; Spontaneous; Pulse Ox 97% RA; al4 al4
[2021-07-17] MEDS ORDERED: KCL 20 MEQ/100 mL IVPB 100 ML IV ONE (14:20)
[2021-07-17] MEDS ORDERED: NA CHLORIDE 0.9% 250 ML ONE ×2 (14:25→22:38)
[2021-07-17] MEDS ORDERED: NA CHLORIDE 0.9% 100 ML ONE (14:27)
--- NOTE | 2021-07-17 14:33 | RAD REPORT ---
EXAM DESCRIPTION: RAD - Chest Single View - 07/17/2021 1:36 pm CLINICAL HISTORY: DYSPNEA COMPARISON: None TECHNIQUE: AP portable chest image was obtained 07/17/2021 1:36 pm . FINDINGS: Lung volumes are low. No peripheral mass or consolidation. Prominent interstitial pattern is believed be chronic though mild infiltrate is possible. No significant failure or volume overload. Heart and vasculature are normal. No measurable pleural effusion and no pneumothorax. No acute bony abnormality seen. No acute aortic findings suspected. IMPRESSION: No acute cardiopulmonary process. Prominent interstitial pattern, believed to be chronic, could mask early edema or infiltrate.
[2021-07-17] MEDS ORDERED: NOREPINEPHRINE 4mg/D5W 250mL 4 MG/250 ML BAG IV ONE ×2 (16:15→16:19)
[2021-07-17 16:49] LABS: Blood Morphology Comment NOTED (NOT SEEN); Platelet Estimate ADEQ; Poikilocytosis 2+
--- NOTE | 2021-07-17 17:04 | RAD REPORT ---
EXAM DESCRIPTION: RAD - Chest Single View - 07/17/2021 4:20 pm CLINICAL HISTORY: Post Subclavian access COMPARISON: July 17 TECHNIQUE: AP portable chest image was obtained 07/17/2021 4:20 pm . FINDINGS: Right subclavian central line has been placed. Tip is in the right atrium. No pneumothorax . Heart, vasculature and lung markings are stable from earlier study. IMPRESSION: Right subclavian central line placement with no pneumothorax. Tip of the line is in the right atrium.
--- NOTE | 2021-07-17 17:08 | P.HP ---
Certification for Inpatient Patient admitted to: Inpatient With expected LOS: >2 Midnights Patient will require the following post-hospital care: Other (Back to [facility]) Practitioner: I am a practitioner with admitting privileges, knowledge of patient current condition, hospital course, and medical plan of care. Services: Services provided to patient in accordance with Admission requirements found in Title 42 Section 412.3 of the Code of Federal Regulations Patient History Date of Service: 07/17/21 Primary Care Provider: [facility] Reason for admission: Diarrhea History of Present Illness: 85-year-old female with history of dementia, atrial fibrillation on chronic anticoagulation therapy, hypertension, GERD, depression and diabetes. Patient presented to the emergency room with increasing diarrhea. No evidence of fever noted. Dehydration also noted. Report came from the son who was present. Son reports patient with history of multiple medical issues. Patient was sent to the ER for further evaluation. In the ER patient was evaluated. Patient appeared septic. Blood pressures were low. Patient given IV fluid bolus. White count 49, hemoglobin 12. Platelet count 286. Sodium 143, potassium 2.8. BUN is 67, creatinine 2.97 with a GFR of 18. Glucose 197. Procalcitonin elevated. Possible UTI noted. Patient admitted for treatment. Allergies levofloxacin [From Levaquin] Adverse Reaction (Verified 04/23/17 17:06) Anaphylaxis Penicillins Adverse Reaction (Verified 04/23/17 17:06) Anaphylaxis Home Medications: Latanoprost Ophth [Xalatan 0.005%*] 1 drop EACH EYE DAILY 04/23/17 Losartan/Hydrochlorothiazide [Losartan-Hctz 50-12.5 mg Tab] 1 tab PO DAILY 04/23/17 Metoprolol Succinate [Toprol Xl] 100 mg PO DAILY 04/23/17 - Past Medical/Surgical History Diabetic: Yes -: Hypertension -: Atrial fibrillation on chronic anticoagulation therapy -: Chronic renal failure -: Dementia -: Depression -: GERD -: Glaucoma -: Hysterectomy -: Stent Psychosocial/ Personal History: [facility] - Family History Family History: Reviewed- Non-Contributory - Family History Father -: Other (see notes) Notes: Blood clots - Social History Smoking Status: Never smoker Alcohol use: No CD- Drugs: No Caffeine use: Yes Place of Residence: [facility] Review of Systems General: Weakness, Unremarkable Eyes: Unremarkable ENT: Unremarkable Respiratory: Unremarkable Cardiovascular: Unremarkable Gastrointestinal: Diarrhea, As per HPI Genitourinary: Unremarkable Musculoskeletal: Unremarkable Integumentary: Unremarkable Neurological: As per HPI Lymphatics: Unremarkable Physical Examination - Studies Laboratory Data (last 24 hrs) 07/17/21 12:47: PT 19.8 H, INR 1.71, APTT 28.2 07/17/21 12:47: WBC 49.20 H*, Hgb 12.4, Hct 37.7, Plt Count 286 07/17/21 12:47: Sodium 143, Potassium 2.8 L*, BUN 67 H, Creatinine 2.97 H, Glucose 197 H, Total Bilirubin 0.6, AST 12 L, ALT 10 L, Alkaline Phosphatase 90, Lipase 18 L Assessment and Plan - Plan COVID: Negative Chest x-ray: Unremarkable Physical Exam: GENERAL: Patient with dementia. VITAL SIGNS: Reviewed HEENT: Head is normocephalic and atraumatic. Extraocular muscles are intact. Pupils are equal, round, and reactive to light and accommodation. Nares appeared normal. Dry mouth. Dry mucous membranes NECK: Supple. No carotid bruits. No lymphadenopathy or thyromegaly. LUNGS: Clear to auscultation. No crackles or wheezes are heard. HEART: Regular rate and rhythm, no appreciable gallops, rubs, murmurs or extra heart sounds ABDOMEN: Soft, nontender, and nondistended. Mild abdominal pain noted EXTREMITIES: Without any cyanosis, clubbing, rash, lesions or peripheral edema. NEUROLOGIC: The patient is oriented to person, place and time. Strength and sensation are grossly intact. Face is symmetric. SKIN: Dry skin Impression: Diarrhea suspect C. difficile colitis with leukocytosis complicated with septic shock Possible UTI Acute renal failure secondary to above with history of chronic renal disease Atrial fibrillation on chronic anticoagulation therapy Hypertension Diabetes mellitus type 2 GERD Plan: Diarrhea suspect C. difficile colitis with leukocytosis complicated with septic shock and possible UTI: Patient admitted for further evaluation and treatment. Patient will be admitted to ICU due to her current status. Patient with septic shock. Fluid bolus given in the emergency room. We will continue with aggressive IV fluids. Will also provide IV Levophed to maintain MAP of 65. Will cover for broad-spectrum. This includes IV vancomycin and IV meropenem. Suspect C. difficile colitis therefore we will add oral vancomycin. Blood, urine cultures obtained. We will continue monitor closely. Case discussed in detail with family. Advanced directives addressed. Patient is DNR. Follow sepsis protocol. Patient to be reevaluated with repeat lactic acid. Acute renal failure secondary to above with history of chronic renal disease: We will consult nephrology to further evaluate. Continue with aggressive fluid hydration. Hold blood pressure medication. Atrial fibrillation on chronic anticoagulation therapy: Continue with Eliquis Hypertension: Hold hydralazine and Norvasc at this time. Consider restarting once blood pressure stable. Diabetes mellitus type 2: Continue sliding scale. Will monitor Accu-Cheks. Will check hemoglobin A1c. GERD: Continue Protonix Dementia: Continue galantamine and Namenda. Depression: Continue sertraline Code Status: Patient is DO NOT RESUSCITATE DVT prophylaxis: Eliquis Advanced Care Planning-30 minutes: [facility]. Discharge Plan: [facility] Living Plan to discharge in: Greater than 2 days - Advance Directives Does patient have a Living Will: No Does patient have a Durable POA for Healthcare: No - Code Status/Comfort Care Code Status Assessed: Yes (Patient is DNR) Time Spent Managing Pts Care (In Minutes): 55
--- NOTE | 2021-07-17 17:34 | RAD REPORT ---
EXAM DESCRIPTION: CT - Abdomen Pelvis Wo Contrast - 07/17/2021 5:15 pm CLINICAL HISTORY: ABD PAIN COMPARISON: Abdomen Pelvis Wo Contrast dated 04/23/2017 TECHNIQUE: Axial [address] imaging of the abdomen and pelvis was performed without IV contrast. No IV contrast was given because of allergy, abnormal renal function, patient refusal or physician re quest. No oral contrast administered. All CT scans are performed using dose optimization technique as appropriate and may include automated exposure control or mA/KV adjustment according to patient size. FINDINGS: No acute pleural or parenchymal finding. Trace amount of pleural fluid is seen. Mild cardi omegaly is present without pericardial effusion. Cardiac valve and aortic calcifications are present. Nodular liver capsule contour is present. No focal lesions seen on noncontrast imaging. No splenomega ly or focal splenic finding. No acute pancreatic process seen. Distended gallbladder contains 3 large gallstones near the neck. Stones were seen on the [address] finding of gallbladder wall thic kening or edema. No biliary tree dilatation. No hydronephrosis or suspicious renal mass. Small nonobstructing calyx calculi are seen. No significa nt adrenal finding. Isodense renal masses and pyelonephritis cannot be excluded in the absence of IV contrast. Urinary bladder is contracted around a Rocha catheter. Pelvic floor assessment is significa ntly limited due to the bilateral hip prosthesis spray artifact. No gastric dilatation. Wall thickness is accentuated by absence of gastric lumen content. Small bowel loops are not dilated. Moderate stool volume is seen in the colon. Wyman of the colon all appear mil dly prominent with no focal mass lesion. No free air or pneumatosis. Trace amount of free intraperito esther fluid present. No hernia, mass or bulky lymphadenopathy. No suspicious bony findings. Prominent degenerative changes are present. Arterial tree calcifications are present. IVC filter is in place. IMPRESSION: No bowel obstruction, free air or surgically emergent finding. Mild wall thickening throughout the colon may reflect a mild pancolitis. Wall edema from electrolyte imbalance is possible as well. Gallbladder is distended but without CT evidence for wall thickening or edema. Three large gallstones are noted similar to 2017. Trace amount of free intraperitoneal fluid with a mild amount of congestion or edema throughout the p eritoneal fat. Liver shows a nodular capsule contour and may reflect cirrhosis or hepatic parenchymal disease that h as progressed from 2017. No focal lesion. Full assessment is limited is the absence of IV contrast.
[2021-07-17] MEDS ORDERED: NOREPINEPHRINE 4 MG in D5W 250 ML IV SCH (19:39)
[2021-07-17] MEDS ORDERED: ONDANSETRON 4 MG/2 ML VIAL IV PRN (19:39)
[2021-07-17] MEDS: VANCOMYCIN ORAL SOLN 250 MG/5 ML OSYR PO SCH ×2 (19:39→23:58)
[2021-07-17] MEDS ORDERED: ACETAMINOPHEN 500 MG TAB PO PRN (19:39)
[2021-07-17] MEDS: INSULIN -REGULAR HUMAN 50 UNIT/0.5 ML ML SQ SCH (21:00)
[2021-07-17] MEDS: APIXABAN 2.5 MG TABLET PO SCH (21:37)
[2021-07-17] MEDS: GALANTAMINE 4 MG TAB PO SCH (21:37)
[2021-07-17] MEDS: MEMANTINE HCL 10 MG TABLET PO SCH (21:37)
[2021-07-17] MEDS: LACTOBACILLUS/ACIDOPHILUS TAB PO SCH (21:38)
[2021-07-17] MEDS ORDERED: Phenylephrine HCl 10 MG/ML 1 ML VIAL ONE (22:38)
--- NOTE | 2021-07-17 23:57 | P.INFCA ---
Sepsis Focused Assessment - Focused Assessment Complete? Sepsis Focused Assessment Completed?: Yes - Sepsis Screen Result Septic Shock: Positive - Evaluation Current stage of sepsis: Septic shock - Vital Signs Reviewed: Yes Heart rate: 128 Blood Pressure: 94/47 Respiratory Rate: 22 O2 Sat by Pulse Oximetry: 96 - Examination Date exam was performed: 07/17/21 Time exam was performed: 20:00 Heart: Tachycardia Lungs: Diminished air movement Peripheral pulses: 2+ Slightly diminished Peripheral pulse location: Radial Capillary refill: <2 Seconds Skin examination: Pale
[2021-07-18 05:17] LABS: Absolute Lymphocytes (CBC) 1.3 K/uL (0.7-4.9); Basophils % 0.1 % (0-1.3); Hematocrit 40.6 % (36.0-45.0); Lymphocytes % 2.1 % (15.3-44.8); MPV 10.3 fL (7.6-11.3); RBC Red Blood Cell Count 4.42 M/uL (3.86-4.86)
[2021-07-18] MEDS: VANCOMYCIN ORAL SOLN 250 MG/5 ML OSYR PO SCH ×4 (05:43→17:12)
[2021-07-18] MEDS: PANTOPRAZOLE 40MG TABLET PO SCH (05:43)
[2021-07-18 05:44] LABS: Albumin 1.6 g/dL (3.4-5.0); Bilirubin Total 0.4 mg/dL (0.2-1.0); Magnesium 1.9 mg/dL (1.8-2.4); Protein, Total 5.3 g/dL (6.4-8.2); Thyroid Stimulating Hormone 1.76 uIU/mL (0.360-3.740)
[2021-07-18 05:45] LABS: Potassium 2.8 mmol/L (3.5-5.1)
[2021-07-18] MEDS ORDERED: NA CHLORIDE 0.9% 250 ML ONE (05:46)
[2021-07-18] MEDS ORDERED: Phenylephrine HCl 10 MG/ML 1 ML VIAL ONE (05:46)
--- NOTE | 2021-07-18 05:48 | P.PN ---
Subjective Date of Service: 07/18/21 Primary Care Provider: half-way Chief Complaint: Diarrhea Subjective: Demented, Other (Overall stable. Vasopressor was changed last night due to elevated HR. A fib with rate elevated.) Physical Examination - Vital Signs Temperature: 96.9 F Blood Pressure: 93/55 Pulse: 135 Respirations: 20 Pulse Ox (%): 99 - Studies Laboratory Data (last 24 hrs) 07/17/21 12:47: PT 19.8 H, INR 1.71, APTT 28.2 07/17/21 12:47: WBC 49.20 H*, Hgb 12.4, Hct 37.7, Plt Count 286 07/17/21 12:47: Sodium 143, Potassium 2.8 L*, BUN 67 H, Creatinine 2.97 H, Glucose 197 H, Total Bilirubin 0.6, AST 12 L, ALT 10 L, Alkaline Phosphatase 90, Lipase 18 L Assessment & Plan Discharge Plan: [facility] Plan to discharge in: Greater than 2 days Physician Review Additional Text: COVID: Negative Chest x-ray: Unremarkable CT Scan AB/Pelvis: COMPARISON: Abdomen Pelvis Wo Contrast dated 04/23/2017 TECHNIQUE: Axial [address] imaging of the abdomen and pelvis was performed without IV contrast. No IV contrast was given because of allergy, abnormal renal function, patient refusal or physician request. No oral contrast administered. All CT scans are performed using dose optimization technique as appropriate and may include automated exposure control or mA/KV adjustment according to patient size. FINDINGS: No acute pleural or parenchymal finding. Trace amount of pleural fluid is seen. Mild cardiomegaly is present without pericardial effusion. Cardiac valve and aortic calcifications are present. Nodular liver capsule contour is present. No focal lesions seen on noncontrast imaging. No splenomegaly or focal splenic finding. No acute pancreatic process seen. Distended gallbladder contains 3 large gallstones near the neck. Stones were seen on the [address] finding of gallbladder wall thickening or edema. No biliary tree dilatation. No hydronephrosis or suspicious renal mass. Small nonobstructing calyx calculi are seen. No significant adrenal finding. Isodense renal masses and pyelonephritis cannot be excluded in the absence of IV contrast. Urinary bladder is contracted around a Rocha catheter. Pelvic floor assessment is significantly limited due to the bilateral hip prosthesis spray artifact. No gastric dilatation. Wall thickness is accentuated by absence of gastric lumen content. Small bowel loops are not dilated. Moderate stool volume is seen in the colon. Wyman of the colon all appear mildly prominent with no focal mass lesion. No free air or pneumatosis. Trace amount of free intraperitoneal fluid present. No hernia, mass or bulky lymphadenopathy. No suspicious bony findings. Prominent degenerative changes are present. Arterial tree calcifications are present. IVC filter is in place. IMPRESSION: No bowel obstruction, free air or surgically emergent finding. Mild wall thickening throughout the colon may reflect a mild pancolitis. Wall edema from electrolyte imbalance is possible as well. Physical Exam: GENERAL: Patient with dementia. VITAL SIGNS: Reviewed. HEENT: Neck supple LUNGS: Clear to auscultation. No crackles or wheezes are heard. HEART: A. fib rate around 120-130 ABDOMEN: Soft, nontender, and nondistended. Mild abdominal pain noted EXTREMITIES: Without any cyanosis, clubbing, rash, lesions or peripheral edema. NEUROLOGIC: The patient is oriented to person, place and time. Strength and sensation are grossly intact. Face is symmetric. SKIN: Dry skin Impression: Diarrhea with pancolitis suspect C. difficile colitis with leukocytosis complicated with septic shock Possible UTI Acute renal failure secondary to above with history of chronic renal disease Atrial fibrillation on chronic anticoagulation therapy Hypertension Diabetes mellitus type 2 GERD Plan: Diarrhea with pancolitis suspect C. difficile colitis with leukocytosis complicated with septic shock and possible UTI: CT scan reviewed. Continue with antibiotic therapy. Currently on IV vancomycin and IV meropenem. Also on oral vancomycin as the patient likely has C. difficile colitis. Await stool, blood cultures. Patient remains on IV fluids. Patient with atrial fibrillation. Vasopressors were adjusted last night and again this morning due to accelerated heart rate. Patient now on phenylephrine. We'll continue to adjust. Case discussed with cardiology. Need to consider IV amiodarone. IV digoxin given. If heart rate improves we'll hold off on IV amiodarone. If the patient heart rate continues above 130 then will start IV amiodarone. Continue with Eliquis. Updated family concerning plan of care. Acute renal failure secondary to above with history of chronic renal disease: Continue with aggressive IV fluids. Nephrology consulted. Renal function improved. Atrial fibrillation on chronic anticoagulation therapy: Continue with Eliquis. Consider IV amiodarone if heart rate remains elevated. Case discussed with cardiology has been consulted. Will obtain echocardiogram. Hypertension: Continue to hold hydralazine and Norvasc at this time. Consider restarting once blood pressure stable. Diabetes mellitus type 2: Continue sliding scale. Will monitor Accu-Cheks. Will check hemoglobin A1c. GERD: Continue Protonix Dementia: Continue galantamine and Namenda. Depression: Continue sertraline Code Status: Patient is DO NOT RESUSCITATE DVT prophylaxis: Eliquis Advanced Care Planning-30 minutes: Patient will return to the longterm once medically stable. Case discussed in detail with family. Advanced directives addressed yesterday. Time Spent Managing Pts Care (In Minutes): 55
[2021-07-18 06:28] LABS: Blood Morphology Comment NOTED (NOT SEEN); Burr Cells 1+; Dohle Bodies PRESENT; Platelet Estimate ADEQ
[2021-07-18] MEDS: INSULIN -REGULAR HUMAN 50 UNIT/0.5 ML ML SQ SCH ×4 (06:49→20:53)
[2021-07-18] MEDS: DIGOXIN 0.25 MG/ML AMP IV SCH (06:58)
[2021-07-18] MEDS: KCL 20 MEQ/100 mL IVPB 20 MEQ/100 ML BAG IV SCH ×3 (06:58→12:19)
[2021-07-18] MEDS ORDERED: NOREPINEPHRINE 4 MG in D5W 250 ML IV SCH (07:00)
[2021-07-18] MEDS: SERTRALINE HCL 50 MG TAB PO SCH (07:34)
[2021-07-18] MEDS: APIXABAN 2.5 MG TABLET PO SCH ×2 (07:34→20:53)
[2021-07-18] MEDS: LACTOBACILLUS/ACIDOPHILUS TAB PO SCH ×3 (07:34→20:53)
[2021-07-18] MEDS: MEMANTINE HCL 10 MG TABLET PO SCH ×2 (07:34→20:53)
[2021-07-18] MEDS: CEFEPIME 0.5 GM in NA CHLORIDE 0.9% 50 ML IV SCH (07:35)
--- NOTE | 2021-07-18 07:36 | EKG ---
Test Date: 2021-07-17 Test Time: 12:53:09 Cantilever Crane Operator: MILDRED MEASUREMENT RESULTS: Intervals: Rate: 115 CT: QRSD: 92 QT: 318 QTc: 439 [place]: P: CT: QRS: 14 T: 237 INTERPRETIVE STATEMENTS: Atrial fibrillation with rapid ventricular response Anterior infarct, age undetermined Abnormal ECG No previous ECG available for comparison Electronically Signed On 07-18-21 07:35:01 GEOINT ANALYST by Lucas See
[2021-07-18] MEDS: GALANTAMINE 4 MG TAB PO SCH ×2 (08:00→17:11)
[2021-07-18] MEDS ORDERED: CEFEPIME 1 GM in NA CHLORIDE 0.9% 100 ML IV SCH (09:00)
[2021-07-18] MEDS: LATANOPROST 0.005% 2.5ML OPTH OPTH SCH (09:00)
[2021-07-18] MEDS: NACHLORIDE 0.45% 1,000 ML with NA BICARB 8.4% 50 MEQ IV SCH ×2 (10:32)
--- NOTE | 2021-07-18 10:33 | CON ---
Date of Consultation: 07/18/2021 History Of Present Illness: The patient is an 85-year-old female admitted to the emergency room, pre sented with low blood pressure, significantly elevated WBC count, question urinary tract infection, q uestion sepsis. The patient is currently on antibiotics. Making some urine. Creatinine is elevated . The patient's urine output has not been that much. Having some diarrhea, however, and output has been documented to be about 450 cc over the last shift. However, the patient had diarrhea symptoms a lready 2 times this morning with 2 episodes of diarrhea. The patient has baseline dementia, question how much she is able to communicate and give answers. She is not able to give much answers to me. She does open her eyes briefly and then closes them, but seems to be alert but not responsive. Most of the history is obtained therefore from the chart. The patient's pulse is in the 120-130 range on exam. It is irregularly irregular. Her blood pressure is running in about low 100. The patient is breathing somewhat comfortably. She is not on any oxygen and her O2 sats are close to 95% to 98%. T he patient is on medications to increase her blood pressure. She is currently on phenylephrine for p ressor support. The patient has been on chronic anticoagulation. She does seem to have a history of diabetes. Likely some chronic kidney disease. Past Medical History: Chronic kidney disease, acute kidney injury. Currently, the patient with hist ory of diabetes, atrial fibrillation, dementia, on anticoagulation. Allergies: LISTED. THE PATIENT IS ALLERGIC TO LEVAQUIN, PENICILLIN. Family History: Noncontributory. Social History: There is no documentation of drug use, alcohol use, or smoking. Physical Examination: General: The patient seems to be alert, but not able to communicate much. She does easily close her eyes and is trying to sleep. She does not seem to be in distress. It does seem like she has had so me diarrhea recently and the nurses are about to come in the room to clean her. Vital Signs: The patient's vitals are with a blood pressure running from 90 to about 100 systolic, p ulse is about 120-135, irregularly irregular. O2 sats are 99% on room air. Abdomen: Soft. Extremities: Reveal trace to no edema. Skin: Dry. Her mouth seems to be on the dry side as well. Laboratory Data: Reviewed. Labs show WBC count of 63,700. Her hemoglobin and hematocrit are 13.1/4 0.6. Her platelet count is 303. Chemistry shows sodium 144, potassium 2.8, chloride 113, bicarb is 20, BUN is 73, creatinine is 2.7, glucose is 166. Lactic acid level 2.7, calcium 7.9, magnesium 1.9. AST and ALT are 14 and 11. Procalcitonin level was 26.92 yesterday. Her TSH is 1.760. Medications: In the chart and reviewed. The patient is currently on Eliquis. She is on cefepime. She has vancomycin. She has Namenda going. She has phenylephrine for pressor support. She has pota ssium replacement with 20 mEq of potassium x3 bags. The patient is currently on vancomycin as well. Assessment And Plan: Elderly female with dementia, chronic kidney disease with acute kidney injury i n the setting of sepsis, low blood pressure, atrial fibrillation, and perhaps changes in cardiac outp ut and renal flow. Part of the renal dysfunction and acute kidney injury could be from hemodynamic c hanges. However, the patient also seems to have urinary tract infection and sepsis, on antibiotics c urrently. The patient also has low potassium. She also has low bicarb. Her sodium is slightly elev ated at 144. She does seem to be volume depleted and breathing status is good with x-ray looking ella an. Imaging does not indicate any hydronephrosis. Adding some IV fluids with half-normal saline at 75 cc an hour with 1 amp of bicarb in 1 L bag. Repeat BMP tomorrow. May adjust fluids further. The patient's breathing is comfortable currently. May need further involvement and medication changes i f heart rate does not improve. Some of the heart rate also is with agitation. As the patient moves the heart rate goes up. As she is calm, it comes down to about 110 or so. The patient's potassium i s low, is being replaced currently. We will recheck the BMP tomorrow. In summary, the patient with sepsis, low blood pressures, atrial fibrillation, hypokalemia, potassium being replaced. Add bicarb in IV fluids regimen. Monitor blood pressure and check BMP in the morning. /CHRISSIE Voice ID: [id number] Report ID: [id number]
[2021-07-18 10:35] LABS: Urine Appearance CLOUDY (Clear); Urine Bilirubin NEGATIVE (Negative); Urine Blood 2+ (Negative); Urine Color YELLOW (Yellow); Urine Glucose NEGATIVE (Negative); Urine Protein 2+ (Negative); Urine Urobilinogen 0.2 mg/dL (0.2-1.0)
[2021-07-18 10:51] LABS: Urine Microscopic Reflex ORDER UMIC
[2021-07-18 11:01] LABS: Urine Amorphous Sediment 1+ /HPF (NONE SEEN); Urine Bacteria 20-50 /HPF (<20); Urine Mucus LIGHT /HPF (NONE SEEN); Urine RBC 20-50 /HPF (NONE SEEN)
--- NOTE | 2021-07-18 12:18 | CON ---
Date of Consultation: 07/18/2021 Reason For Consultation: Atrial fibrillation. History Of Present Illness: Ms. Del Castillo is 85. Came in with sepsis, altered mental status, hypotensi on requiring pressors, and noted to be in atrial fibrillation. Her last rate was at 137. Failed dig oxin and she takes metoprolol, losartan with hydrochlorothiazide at home. Her white count was 49,000 , creatinine is 2.97. Potassium was 2.8. She has no cardiac complaints. Past Medical History: Includes hypertension. Allergies: INCLUDE PENICILLIN AND LEVAQUIN. Review of Systems: Negative. Social History: Negative. Family History: Negative. Medications: Listed earlier. Physical Examination: Vital Signs: She is in AFib at a rate of 137. HEENT: Negative. Neck: Supple with no bruit. Chest: Revealed no rales or crackles. Cardiac: Revealed atrial fibrillation. Abdomen: Benign. Extremities: Revealed trace edema. Diagnostic Data: As stated earlier. Impression And Plan: Atrial fibrillation, rapid ventricular response, probably secondary to sepsis. We need to correct her potassium and then put her on IV amiodarone if she remains in rapid rhythm. She is obviously not a candidate for metoprolol or losartan with hydrochlorothiazide concerning her h ypotension. She needs to have her sepsis treated. She is on Eliquis and antibiotics. Echocardiogra m is pending. We will continue to follow. GENA/CHRISSIE Voice ID: [id number] Report ID: [id number]
--- NOTE | 2021-07-18 13:38 | ECHO ---
HEIGHT: 5 ft 3 in WEIGHT: 156 lb 5 oz DATE OF STUDY: 06/29/[address]: Rajan Lovelace DO 2-DIMENSIONAL: YES M.MODE: YES DOPPLER: YES COLOR FLOW: YES TDS: PORTABLE: YES DEFINITY: BUBBLE STUDY: DIAGNOSIS: SEPTIC SHOCK, ATRIAL FIBRILLATION CARDIAC HISTORY: CATHERIZATION: NO SURGERY: NO PROSTHETIC VALVE: NO PACEMAKER: NO MEASUREMENTS (cm) DIASTOLIC (NORMALS) SYSTOLIC (NORMALS) IVSd 1.1 (0.6-1.2) LA Diam 3.0 (1.9-4.0) LVEF 62% LVIDd 3.2 (3.5-5.7) LVIDs 2.1 (2.0-3.5) %FS 33% LVPWd 1.1 (0.6-1.2) Ao Diam 2.6 (2.0-3.7) 2 DIMENSIONAL ASSESSMENT: RIGHT ATRIUM: LEFT ATRIUM: RIGHT VENTRICLE: LEFT VENTRICLE: TRICUSPID VALVE: MITRAL VALVE: MITRAL ANNULAR CALCIFICATION PULMONIC VALVE: NORMAL AORTIC VALVE: SCLEROSIS PERICARDIAL EFFUSION: AORTIC ROOT: LEFT VENTRICULAR WALL MOTION: DOPPLER/COLOR FLOW: COMMENTS: ATRIAL FIBRILLATION WITH RAPID VENTRICULAR RESPONSE. NORMAL LEFT VENTRICULAR EJECTION FRACTION AND SIZE. MITRAL ANNULAR CALCIFICATION. AORTIC SCLEROSIS. TECHNOLOGIST: BERENICE BOB
[2021-07-18] MEDS ORDERED: AMIODARONE HCL 150 MG in D5W 100 ML IV STA (17:06)
[2021-07-18] MEDS: AMIODARONE HCL 900 MG in Dextrose 5%-Water 482 ML IV SCH (17:17)
[2021-07-18 18:22] LABS: C.diff Antigen/Toxin Ag pos : Tox pos (NEG : NEG)
[2021-07-19] MEDS: VANCOMYCIN ORAL SOLN 250 MG/5 ML OSYR PO SCH ×4 (00:43→17:14)
[2021-07-19] MEDS: NACHLORIDE 0.45% 1,000 ML with NA BICARB 8.4% 50 MEQ IV SCH ×4 (00:43→14:57)
[2021-07-19 05:34] LABS: Absolute Lymphocytes (CBC) 1.8 K/uL (0.7-4.9); Basophils % 0.2 % (0-1.3); Hematocrit 37.4 % (36.0-45.0); MPV 10.6 fL (7.6-11.3); RBC Red Blood Cell Count 4.11 M/uL (3.86-4.86)
[2021-07-19 05:44] LABS: Albumin 1.4 g/dL (3.4-5.0); Bilirubin Total 0.4 mg/dL (0.2-1.0); Magnesium 1.9 mg/dL (1.8-2.4); Potassium 3.3 mmol/L (3.5-5.1); Protein, Total 4.7 g/dL (6.4-8.2)
--- NOTE | 2021-07-19 05:50 | P.PN ---
Subjective Date of Service: 07/19/21 Primary Care Provider: snf Chief Complaint: Diarrhea Subjective: Demented, Other (Heart rate improved. Patient was placed on IV amiodarone yesterday. Patient being weaned off vasopressor.) Physical Examination - Vital Signs Temperature: 97.1 F Blood Pressure: 89/72 Pulse: 108 Respirations: 17 Pulse Ox (%): 98 - Studies Microbiology Data (last 24 hrs): 07/17/21 16:09 Blood - Blood Blood Culture Gram Stain - Final 07/17/21 13:05 Blood - Blood Blood Culture Gram Stain - Final 07/17/21 13:05 Blood - Blood Gram Stain - Final 07/17/21 13:30 Stool Fecal Leukocyte Stain - Final Assessment & Plan Discharge Plan: [facility] Plan to discharge in: Greater than 2 days Physician Review Additional Text: COVID: Negative Chest x-ray: Unremarkable CT Scan AB/Pelvis: COMPARISON: Abdomen Pelvis Wo Contrast dated 04/23/2017 TECHNIQUE: Axial [address] imaging of the abdomen and pelvis was performed without IV contrast. No IV contrast was given because of allergy, abnormal renal function, patient refusal or physician request. No oral contrast administered. All CT scans are performed using dose optimization technique as appropriate and may include automated exposure control or mA/KV adjustment according to patient size. FINDINGS: No acute pleural or parenchymal finding. Trace amount of pleural fluid is seen. Mild cardiomegaly is present without pericardial effusion. Cardiac valve and aortic calcifications are present. Nodular liver capsule contour is present. No focal lesions seen on noncontrast imaging. No splenomegaly or focal splenic finding. No acute pancreatic process seen. Distended gallbladder contains 3 large gallstones near the neck. Stones were seen on the [address] finding of gallbladder wall thickening or edema. No biliary tree dilatation. No hydronephrosis or suspicious renal mass. Small nonobstructing calyx calculi are seen. No significant adrenal finding. Isodense renal masses and pyelonephritis cannot be excluded in the absence of IV contrast. Urinary bladder is contracted around a Rocha catheter. Pelvic floor assessment is significantly limited due to the bilateral hip prosthesis spray artifact. No gastric dilatation. Wall thickness is accentuated by absence of gastric lumen content. Small bowel loops are not dilated. Moderate stool volume is seen in the colon. Wyman of the colon all appear mildly prominent with no focal mass lesion. No free air or pneumatosis. Trace amount of free intraperitoneal fluid present. No hernia, mass or bulky lymphadenopathy. No suspicious bony findings. Prominent degenerative changes are present. Arterial tree calcifications are present. IVC filter is in place. IMPRESSION: No bowel obstruction, free air or surgically emergent finding. Mild wall thickening throughout the colon may reflect a mild pancolitis. Wall edema from electrolyte imbalance is possible as well. ECHO: CATHERIZATION: NO SURGERY: NO PROSTHETIC VALVE: NO PACEMAKER: NO MEASUREMENTS (cm) DIASTOLIC (NORMALS) SYSTOLIC (NORMALS) IVSd 1.1 (0.6-1.2) LA Diam 3.0 (1.9-4.0) LVEF 62% LVIDd 3.2 (3.5-5.7) LVIDs 2.1 (2.0-3.5) %FS 33% LVPWd 1.1 (0.6-1.2) Ao Diam 2.6 (2.0-3.7) 2 DIMENSIONAL ASSESSMENT: RIGHT ATRIUM: LEFT ATRIUM: RIGHT VENTRICLE: LEFT VENTRICLE: TRICUSPID VALVE: MITRAL VALVE: MITRAL ANNULAR CALCIFICATION PULMONIC VALVE: NORMAL AORTIC VALVE: SCLEROSIS PERICARDIAL EFFUSION: AORTIC ROOT: LEFT VENTRICULAR WALL MOTION: DOPPLER/COLOR FLOW: COMMENTS: ATRIAL FIBRILLATION WITH RAPID VENTRICULAR RESPONSE. NORMAL LEFT VENTRICULAR EJECTION FRACTION AND SIZE. MITRAL ANNULAR CALCIFICATION. AORTIC SCLEROSIS. Physical Exam: GENERAL: Patient with dementia. VITAL SIGNS: Reviewed. Vital signs improved. Blood pressure improved being weaned off vasopressor. Heart rate also improved. HEENT: Neck supple LUNGS: Clear to auscultation. No crackles or wheezes are heard. HEART: A. fib rate around 100-110s ABDOMEN: Soft, nontender, and nondistended. Mild abdominal pain noted. Overall improved. EXTREMITIES: Without any cyanosis, clubbing, rash, lesions or peripheral edema. NEUROLOGIC: The patient is oriented to person, place and time. Strength and sensation are grossly intact. Face is symmetric. SKIN: Dry skin Impression: Diarrhea with pancolitis secondary to C. difficile colitis with leukocytosis complicated with septic shock and bacteremia, blood culture showing gram- positive cocci Possible UTI Acute renal failure secondary to above with history of chronic renal disease Atrial fibrillation on chronic anticoagulation therapy Hypertension Diabetes mellitus type 2 GERD Plan: Diarrhea with pancolitis secondary to C. difficile colitis with leukocytosis complicated with septic shock and bacteremia, blood culture showing gram- positive cocci: Overall improved. Urine culture negative. Blood culture shows gram-positive cocci. Patient found to be positive for C. difficile colitis. Will discontinue IV meropenem. Continue IV vancomycin and oral vancomycin. Continue lactobacillus. Continue to wean off vasopressorphenylephrine. Patient was placed on IV amiodarone due to her atrial fibrillation. Anticipate patient will continue to improve. Consider restarting her beta-david therapy after transitioning off amiodarone as her condition improves. We will continue to discuss with family. Continue with IV fluids as recommended by nephrology. Will discuss further with cardiology and nephrology. Acute renal failure secondary to above with history of chronic renal disease: Continue IV fluids. Patient remains off blood pressure medicationmetoprolol and losartan hydrochlorothiazide. Continue to wean off vasopressor. Nephrology added bicarbonate yesterday. Continue with nephrology recommendations. Will discuss with nephrology. Atrial fibrillation on chronic anticoagulation therapy: Continue with Eliquis. Patient was started on IV amiodarone with improvement. As her condition improves anticipate that we can transition off of amiodarone to her beta-david therapy. Case discussed with cardiology yesterday. Echocardiogram shows normal ejection fraction. No intervention required at this time. Hypertension: Patient remains on vasopressorphenylephrine. Continue to wean off vasopressor. Patient previously on metoprolol and losartan hydrochlorothiazide. Diabetes mellitus type 2: Continue sliding scale. Will monitor Accu-Cheks. Will check hemoglobin A1c. GERD: Continue Protonix Dementia: Continue galantamine and Namenda. Depression: Continue sertraline Code Status: Patient is DO NOT RESUSCITATE DVT prophylaxis: Alonso Advanced Care Planning-30 minutes: Patient will return to the skilled nursing once medically stable. Case discussed in detail with family. Time Spent Managing Pts Care (In Minutes): 55
[2021-07-19] MEDS: PANTOPRAZOLE 40MG TABLET PO SCH (06:13)
[2021-07-19] MEDS: KCL 20 MEQ/100 mL IVPB 20 MEQ/100 ML BAG IV SCH ×2 (06:30→08:12)
[2021-07-19] MEDS: DIGOXIN 0.25 MG/ML AMP IV SCH (07:00)
[2021-07-19] MEDS: INSULIN -REGULAR HUMAN 50 UNIT/0.5 ML ML SQ SCH ×4 (07:30→20:13)
[2021-07-19] MEDS: LATANOPROST 0.005% 2.5ML OPTH OPTH SCH (08:02)
[2021-07-19] MEDS: CEFEPIME 0.5 GM in NA CHLORIDE 0.9% 50 ML IV SCH (08:12)
[2021-07-19] MEDS: APIXABAN 2.5 MG TABLET PO SCH ×2 (08:13→20:11)
[2021-07-19] MEDS: MEMANTINE HCL 10 MG TABLET PO SCH ×2 (08:13→20:10)
[2021-07-19] MEDS: LACTOBACILLUS/ACIDOPHILUS TAB PO SCH ×2 (08:13→14:57)
[2021-07-19] MEDS: SERTRALINE HCL 50 MG TAB PO SCH (08:26)
[2021-07-19] MEDS: GALANTAMINE 4 MG TAB PO SCH ×2 (08:26→17:15)
[2021-07-19] MEDS ORDERED: DIGOXIN 0.25 MG/ML AMP IV ONE (14:00)
[2021-07-19] MEDS ORDERED: VANCOMYCIN 1.25 GM in NA CHLORIDE 0.9% 250 ML IVPB SCH (14:00)
[2021-07-19] MEDS: AMIODARONE HCL 900 MG in Dextrose 5%-Water 482 ML IV SCH (17:15)
--- NOTE | 2021-07-19 17:32 | PN ---
Date of Progress Note: 07/19/2021 Subjective: The patient was seen and examined at bedside. She is doing okay. Blood pressure is doi ng much better. She is not eating much. Franck-Synephrine has just been turned off. Objective: Vital Signs: Pulse rate is in the 114, respiratory rate of 20, and blood pressure 167/85 . General: She appears cachectic, malnourished. HEENT: Atraumatic head. Lungs: Clear to auscultation anteriorly. Abdomen: Soft and nontender. Extremities: Showed no evidence of edema. Laboratory Data: Showing creatinine improving to 2.1, BUN of 71, sodium of 142, potassium of 3.3. C BC showing WBC count of 45,000. Hemoglobin, hematocrit, and platelet count are stable. Current Medications: Include amiodarone 1 time dose was given. She is on amiodarone drip, apixaban, digoxin 1 time dose was given, galantamine, Neftali, memantine, Zoloft. She was getting half NS with an amp of bicarbonate, which has been stopped at this time. P.o. vancomycin 125 mg every 6 hours and IV vancomycin every 48 hours. Impression: 1.Acute renal failure secondary to ATN, currently with improving renal function, nonoliguric. 2.Sepsis from hester-colitis secondary to Clostridium difficile colitis with leukocytosis complicated w ith septic shock and bacteremia. Blood cultures are also showing gram-positive cocci. 3.Possible urinary tract infection. 4.Atrial fibrillation, on chronic anticoagulation, currently rate controlled. 5.Malnutrition. 6.Severe debility and weakness. Plan: The patient's renal function is overall doing better at this time. Since her acidosis and oth er electrolytes seem to be correcting okay, we will go ahead and switch her to half NS with potassium chloride to improve her hypokalemia and also to prevent further episodes of AFib. AFib is more rate controlled at this time. Hypotension is also improving. She is off pressors. Avoid further hypote nsion and nephrotoxins. Continue to monitor leukocytosis closely. Antibiotics are being adjusted by Dr. Lovelace as well. We will continue to follow up. VV/MODL Voice ID: [id number] Report ID: [id number]
[2021-07-19] MEDS ORDERED: NACHLORIDE 0.45% 0 ML IV ONE (17:34)
[2021-07-19] MEDS: KCL IV SCH (18:33)
[2021-07-19] MEDS: NACHLORIDE 0.45% IV SCH (18:33)
[2021-07-19] MEDS: ENSURE HIGH PROTEIN 237 ML CAN PO SCH (20:11)
[2021-07-19] MEDS: JUVEN PACKET PO SCH (20:11)
[2021-07-20] MEDS: VANCOMYCIN ORAL SOLN 250 MG/5 ML OSYR PO SCH ×4 (00:16→17:01)
[2021-07-20 00:20] VITALS: O2SAT 96
[2021-07-20 04:51] LABS: Absolute Lymphocytes (CBC) 1.1 K/uL (0.7-4.9); Basophils % 0.4 % (0-1.3); Hematocrit 35.3 % (36.0-45.0); Lymphocytes % 5.3 % (15.3-44.8); MPV 9.6 fL (7.6-11.3); RBC Red Blood Cell Count 3.86 M/uL (3.86-4.86)
[2021-07-20 05:13] LABS: Albumin 1.5 g/dL (3.4-5.0); Bilirubin Total 0.4 mg/dL (0.2-1.0); Potassium 3.6 mmol/L (3.5-5.1); Protein, Total 4.9 g/dL (6.4-8.2)
[2021-07-20 05:44] VITALS: BMI 29.0
--- NOTE | 2021-07-20 05:52 | P.PN ---
Subjective Date of Service: 07/20/21 Primary Care Provider: [facility] Chief Complaint: Diarrhea Subjective: Other (Patient appears improved. Nurses report lack of appetite. Patient now in sinus rhythm. She converted last night. Patient off vasopressor.) Physical Examination - Vital Signs Temperature: 97.4 F Blood Pressure: 105/76 Pulse: 105 Respirations: 22 Pulse Ox (%): 96 - Studies Microbiology Data (last 24 hrs): 07/17/21 13:44 Clean Catch Urine Knott Count - Final BETWEEN 10,000 & 100,000 CFU/ML 07/17/21 13:44 Clean Catch Urine - Final MIXED JESSICA. 07/17/21 16:09 Blood - Blood Blood Culture Gram Stain - Final 07/17/21 13:05 Blood - Blood Blood Culture Gram Stain - Final 07/17/21 13:05 Blood - Blood Gram Stain - Final Assessment & Plan Discharge Plan: [facility] Plan to discharge in: Greater than 2 days Physician Review Additional Text: COVID: Negative Chest x-ray: Unremarkable CT Scan AB/Pelvis: COMPARISON: Abdomen Pelvis Wo Contrast dated 04/23/2017 TECHNIQUE: Axial [address] imaging of the abdomen and pelvis was performed without IV contrast. No IV contrast was given because of allergy, abnormal renal function, patient refusal or physician request. No oral contrast administered. All CT scans are performed using dose optimization technique as appropriate and may include automated exposure control or mA/KV adjustment according to patient size. FINDINGS: No acute pleural or parenchymal finding. Trace amount of pleural fluid is seen. Mild cardiomegaly is present without pericardial effusion. Cardiac valve and aortic calcifications are present. Nodular liver capsule contour is present. No focal lesions seen on noncontrast imaging. No splenomegaly or focal splenic finding. No acute pancreatic process seen. Distended gallbladder contains 3 large gallstones near the neck. Stones were seen on the [address] finding of gallbladder wall thickening or edema. No biliary tree dilatation. No hydronephrosis or suspicious renal mass. Small nonobstructing calyx calculi are seen. No significant adrenal finding. Isodense renal masses and pyelonephritis cannot be excluded in the absence of IV contrast. Urinary bladder is contracted around a Rocha catheter. Pelvic floor assessment is significantly limited due to the bilateral hip prosthesis spray artifact. No gastric dilatation. Wall thickness is accentuated by absence of gastric lumen content. Small bowel loops are not dilated. Moderate stool volume is seen in the colon. Wyman of the colon all appear mildly prominent with no focal mass lesion. No free air or pneumatosis. Trace amount of free intraperitoneal fluid present. No hernia, mass or bulky lymphadenopathy. No suspicious bony findings. Prominent degenerative changes are present. Arterial tree calcifications are present. IVC filter is in place. IMPRESSION: No bowel obstruction, free air or surgically emergent finding. Mild wall thickening throughout the colon may reflect a mild pancolitis. Wall edema from electrolyte imbalance is possible as well. ECHO: CATHERIZATION: NO SURGERY: NO PROSTHETIC VALVE: NO PACEMAKER: NO MEASUREMENTS (cm) DIASTOLIC (NORMALS) SYSTOLIC (NORMALS) IVSd 1.1 (0.6-1.2) LA Diam 3.0 (1.9-4.0) LVEF 62% LVIDd 3.2 (3.5-5.7) LVIDs 2.1 (2.0-3.5) %FS 33% LVPWd 1.1 (0.6-1.2) Ao Diam 2.6 (2.0-3.7) 2 DIMENSIONAL ASSESSMENT: RIGHT ATRIUM: LEFT ATRIUM: RIGHT VENTRICLE: LEFT VENTRICLE: TRICUSPID VALVE: MITRAL VALVE: MITRAL ANNULAR CALCIFICATION PULMONIC VALVE: NORMAL AORTIC VALVE: SCLEROSIS PERICARDIAL EFFUSION: AORTIC ROOT: LEFT VENTRICULAR WALL MOTION: DOPPLER/COLOR FLOW: COMMENTS: ATRIAL FIBRILLATION WITH RAPID VENTRICULAR RESPONSE. NORMAL LEFT VENTRICULAR EJECTION FRACTION AND SIZE. MITRAL ANNULAR CALCIFICATION. AORTIC SCLEROSIS. Physical Exam: GENERAL: Patient with dementia. VITAL SIGNS: Reviewed. Vital signs stable. Patient in normal sinus rhythm. HEENT: Neck supple LUNGS: Clear to auscultation. No crackles or wheezes are heard. HEART: Normal sinus rhythm ABDOMEN: Soft, nontender, and nondistended. No significant pain noted EXTREMITIES: Without any cyanosis, clubbing, rash, lesions or peripheral edema. NEUROLOGIC: Patient alert. Cooperative SKIN: Dry skin Impression: Diarrhea with pancolitis secondary to C. difficile colitis with leukocytosis complicated with septic shock and bacteremia, blood culture showing gram- positive cocci Possible UTI Acute renal failure secondary to above with history of chronic renal disease Atrial fibrillation on chronic anticoagulation therapy Hypertension Diabetes mellitus type 2 GERD Dementia Depression Plan: Diarrhea with pancolitis secondary to C. difficile colitis with leukocytosis c omplicated with septic shock and bacteremia, blood culture positive for staph epidermidis: Patient has improved. Patient now in normal sinus rhythm. White count improved. Continue with oral vancomycin to treat C. difficile colitis. Blood culture positive for staph epidermidis. Sensitive only to vancomycin. Patient will need to continue with IV vancomycin for a total of 14 days. Currently on day 3. Will repeat blood cultures. Encourage oral intake. Patient off vasopressor. Will discuss with cardiology about transitioning from IV amiodarone to oral medication. We will continue to discuss plan of care with family. Social work yesterday reported [facility]. Acute renal failure secondary to above with history of chronic renal disease: Continue IV fluids. Blood pressure stable. Patient remains off blood pressure medicationmetoprolol and losartan hydrochlorothiazide. Now off vasopressor. Continue with nephrology recommendations. Atrial fibrillation on chronic anticoagulation therapy: Now in normal sinus rhythm. Patient remains on IV amiodarone. Will discuss with cardiology about transitioning to oral amiodarone. Continue with Eliquis. Echocardiogram shows normal ejection fraction. No intervention required at this time. Hypertension: Blood pressure stable. Patient has been weaned off vasopressorphenylephrine. Patient previously on metoprolol and losartan hydrochlorothiazide. Diabetes mellitus type 2: Continue sliding scale. Will monitor Accu-Cheks. Will check hemoglobin A1c. GERD: Continue Protonix Dementia: Continue galantamine and Namenda. Depression: Continue sertraline Code Status: Patient is DO NOT RESUSCITATE DVT prophylaxis: Eliquis Advanced Care Planning-30 minutes: We will discuss with family about current status. [facility]. Will arrange. Will discuss further with family about plan of care at the [facility]. floor worker had mentioned that family would want hospice. Will verify. Time Spent Managing Pts Care (In Minutes): 55
[2021-07-20] MEDS: INSULIN -REGULAR HUMAN 50 UNIT/0.5 ML ML SQ SCH ×4 (07:00→21:00)
[2021-07-20] MEDS: MEMANTINE HCL 10 MG TABLET PO SCH ×2 (08:11→21:08)
[2021-07-20] MEDS: SERTRALINE HCL 50 MG TAB PO SCH (08:11)
[2021-07-20] MEDS: GALANTAMINE 4 MG TAB PO SCH ×2 (08:12→17:01)
[2021-07-20] MEDS: APIXABAN 2.5 MG TABLET PO SCH ×2 (08:12→21:08)
[2021-07-20] MEDS: NACHLORIDE 0.45% IV SCH ×2 (08:13→21:09)
[2021-07-20] MEDS: KCL IV SCH ×2 (08:13→21:09)
[2021-07-20] MEDS: PANTOPRAZOLE 40MG TABLET PO SCH (08:13)
[2021-07-20] MEDS: JUVEN PACKET PO SCH ×2 (08:14→23:16)
[2021-07-20] MEDS: ENSURE HIGH PROTEIN 237 ML CAN PO SCH ×2 (08:14→23:16)
[2021-07-20] MEDS: LATANOPROST 0.005% 2.5ML OPTH OPTH SCH (09:00)
--- NOTE | 2021-07-20 12:01 | PN ---
Date of Progress Note: 07/20/2021 Subjective: Patient is seen and examined at bedside. She is doing okay. Urine output has significa ntly improved. She continues to remains off pressors. However, she has had very poor p.o. intake. She continues to be on IV fluids. Physical Examination: Vital Signs: Have been reviewed and are stable. General: She appears in no acute distress. Cachectic, malnourished. HEENT: Atraumatic head. Bowel sounds are sluggish. Extremities: Shows no evidence of edema. Laboratory Data: Showing sodium of 141, potassium of 3.6, chloride of 113, BUN of 63, and creatinine of 1.79, which is improving. CBC showing WBC count improving to 20,000, stable hemoglobin, hematocr it, and platelet count. Current Medications: Have been reviewed in detail. Impression: Acute renal failure secondary to volume depletion and ATN. Currently with improving david al function, nonoliguric. Impression: 1.Acute renal failure secondary to ATN and hypovolemia, improving, nonoliguric. 2.C. diff colitis. The patient is on IV and p.o. vancomycin. 3.Severe malnutrition. 4.Advanced dementia. 5.Hypotension, currently improving. Plan: The patient is overall doing okay. Continue IV fluids at this time until she can improve her p.o. intake. Continue all other medications and plan of care. Avoid further hypotension and nephrotoxins. Antibiotics are being dosed appropriately. Follow up closely. VV/MODL Voice ID: [id number] Report ID: [id number]
[2021-07-20] MEDS: AMIODARONE HCL 200 MG TAB PO SCH (17:10)
[2021-07-21] MEDS: VANCOMYCIN ORAL SOLN 250 MG/5 ML OSYR PO SCH ×2 (01:04→06:00)
[2021-07-21 05:32] LABS: Absolute Lymphocytes (CBC) 0.8 K/uL (0.7-4.9); Basophils % 0.2 % (0-1.3); Hematocrit 35.2 % (36.0-45.0); Lymphocytes % 6.7 % (15.3-44.8); MPV 9.4 fL (7.6-11.3); RBC Red Blood Cell Count 3.87 M/uL (3.86-4.86)
--- NOTE | 2021-07-21 05:49 | P.PN ---
Subjective Date of Service: 07/21/21 Primary Care Provider: group home Chief Complaint: Diarrhea Subjective: Doing well, Demented Physical Examination - Vital Signs Temperature: 97.6 F Blood Pressure: 125/68 Pulse: 77 Respirations: 18 Pulse Ox (%): 94 - Studies Microbiology Data (last 24 hrs): 07/17/21 13:30 Stool Culture & Sensitivity - Final 07/17/21 13:05 Blood - Blood Aerobic Blood Culture - Final Staph Epidermidis 07/17/21 13:05 Blood - Blood Blood Culture Gram Stain - Final 07/17/21 13:05 Blood - Blood Anaerobic Blood Culture - Final Staph Epidermidis 07/17/21 13:05 Blood - Blood Gram Stain - Final Assessment & Plan Discharge Plan: [facility] Plan to discharge in: 24 Hours Physician Review Additional Text: COVID: Negative Chest x-ray: Unremarkable CT Scan AB/Pelvis: COMPARISON: Abdomen Pelvis Wo Contrast dated 04/23/2017 TECHNIQUE: Axial [address] imaging of the abdomen and pelvis was performed without IV contrast. No IV contrast was given because of allergy, abnormal renal function, patient refusal or physician request. No oral contrast administered. All CT scans are performed using dose optimization technique as appropriate and may include automated exposure control or mA/KV adjustment according to patient size. FINDINGS: No acute pleural or parenchymal finding. Trace amount of pleural fluid is seen. Mild cardiomegaly is present without pericardial effusion. Cardiac valve and aortic calcifications are present. Nodular liver capsule contour is present. No focal lesions seen on noncontrast imaging. No splenomegaly or focal splenic finding. No acute pancreatic process seen. Distended gallbladder contains 3 large gallstones near the neck. Stones were seen on the [address] finding of gallbladder wall thickening or edema. No biliary tree dilatation. No hydronephrosis or suspicious renal mass. Small nonobstructing calyx calculi are seen. No significant adrenal finding. Isodense renal masses and pyelonephritis cannot be excluded in the absence of IV contrast. Urinary bladder is contracted around a Rocha catheter. Pelvic floor assessment is significantly limited due to the bilateral hip prosthesis spray artifact. No gastric dilatation. Wall thickness is accentuated by absence of gastric lumen content. Small bowel loops are not dilated. Moderate stool volume is seen in the colon. Wyman of the colon all appear mildly prominent with no focal mass lesion. No free air or pneumatosis. Trace amount of free intraperitoneal fluid present. No hernia, mass or bulky lymphadenopathy. No suspicious bony findings. Prominent degenerative changes are present. Arterial tree calcifications are present. IVC filter is in place. IMPRESSION: No bowel obstruction, free air or surgically emergent finding. Mild wall thickening throughout the colon may reflect a mild pancolitis. Wall edema from electrolyte imbalance is possible as well. ECHO: CATHERIZATION: NO SURGERY: NO PROSTHETIC VALVE: NO PACEMAKER: NO MEASUREMENTS (cm) DIASTOLIC (NORMALS) SYSTOLIC (NORMALS) IVSd 1.1 (0.6-1.2) LA Diam 3.0 (1.9-4.0) LVEF 62% LVIDd 3.2 (3.5-5.7) LVIDs 2.1 (2.0-3.5) %FS 33% LVPWd 1.1 (0.6-1.2) Ao Diam 2.6 (2.0-3.7) 2 DIMENSIONAL ASSESSMENT: RIGHT ATRIUM: LEFT ATRIUM: RIGHT VENTRICLE: LEFT VENTRICLE: TRICUSPID VALVE: MITRAL VALVE: MITRAL ANNULAR CALCIFICATION PULMONIC VALVE: NORMAL AORTIC VALVE: SCLEROSIS PERICARDIAL EFFUSION: AORTIC ROOT: LEFT VENTRICULAR WALL MOTION: DOPPLER/COLOR FLOW: COMMENTS: ATRIAL FIBRILLATION WITH RAPID VENTRICULAR RESPONSE. NORMAL LEFT VENTRICULAR EJECTION FRACTION AND SIZE. MITRAL ANNULAR CALCIFICATION. AORTIC SCLEROSIS. Physical Exam: GENERAL: Patient with Alzheimer's. Patient did not eat yesterday. Will wait and see how she does this morning. VITAL SIGNS: Reviewed. Vital signs stable. Patient in normal sinus rhythm. HEENT: Neck supple LUNGS: Clear to auscultation. No crackles or wheezes are heard. HEART: Normal sinus rhythm ABDOMEN: Soft, nontender, and nondistended. No significant pain noted EXTREMITIES: Without any cyanosis, clubbing, rash, lesions or peripheral edema. NEUROLOGIC: Patient alert. Patient appears cooperative. SKIN: Dry skin Impression: Diarrhea with pancolitis secondary to C. difficile colitis with leukocytosis complicated with septic shock and bacteremia, blood culture showing gram- positive cocci Possible UTI Acute renal failure secondary to above with history of chronic renal disease Atrial fibrillation on chronic anticoagulation therapy Hypertension Diabetes mellitus type 2 GERD Early Alzheimer's, advanced Depression Plan: Diarrhea with pancolitis secondary to C. difficile colitis with leukocytosis complicated with septic shock and bacteremia, blood culture positive for staph epidermidis: Patient appears improved. Lab improved white count down to 11. Patient remains on oral vancomycin for C. difficile colitis. Patient also being treated with IV vancomycin for staph epidermidis. Currently on day 4 out of 14. Patient has been transitioned to oral amiodarone. Spoke with family again this morning. The plan will be to see if the patient is able to eat appropriately. If she is not able to eat due to her Alzheimer's then the plan will be is to send her to the [facility] with hospice in place. If the patient is able to eat and more alert and cooperative then the plan would be to have a PICC line placed so that IV antibiotic therapy can be continued and finished at the [facility] then hospice after treatment. Will discuss with nursing. This was discussed in detail with licensed master social worker. coordinator of rehabilitation services reports that the patient can return to the [facility] today on both options. Await to see what family decides. Acute renal failure secondary to above with history of chronic renal disease: Continue IV fluids. Blood pressure stable. Patient remains off blood pressure medicationmetoprolol and losartan hydrochlorothiazide. Remains off vasopressor. Continue with nephrology recommendations. Atrial fibrillation on chronic anticoagulation therapy: Now in normal sinus rhythm. Continue oral amiodarone. Continue with Eliquis. Echocardiogram shows normal ejection fraction. No intervention required at this time. Hypertension: Blood pressure slightly elevated. Patient remains off vasopressor. Will start low-dose losartan. Diabetes mellitus type 2: Continue sliding scale. Will monitor Accu-Cheks. Hemoglobin A1c 5.4 GERD: Continue Protonix Early Alzheimer's, advanced: Continue galantamine and Namenda. Depression: Continue sertraline Code Status: Patient is DO NOT RESUSCITATE DVT prophylaxis: Eliquis Advanced Care Planning-30 minutes: Continue with above plan of care. If the patient is able to eat appropriately then will proceed with treatment of C. difficile colitis and bacteremia. Patient will require PICC line if this option is chosen. Patient can potentially be discharged with IV antibiotic therapy to the [facility] today. If the patient is not eating then the plan would be to send home to the [facility] with hospice and comfort measures without treatment of colitis and bacteremia. Time Spent Managing Pts Care (In Minutes): 55
[2021-07-21 05:53] LABS: Potassium 4.2 mmol/L (3.5-5.1)
[2021-07-21 06:37] LABS: Blood Morphology Comment NOT SEEN (NOT SEEN); Platelet Estimate ADEQ; White Blood Cell Scan OK (OK)
[2021-07-21] MEDS: INSULIN -REGULAR HUMAN 50 UNIT/0.5 ML ML SQ SCH (07:30)
[2021-07-21] MEDS: PANTOPRAZOLE 40MG TABLET PO SCH ×2 (07:30→08:31)
[2021-07-21] MEDS: GALANTAMINE 4 MG TAB PO SCH ×2 (08:00→08:31)
[2021-07-21] MEDS: SERTRALINE HCL 50 MG TAB PO SCH ×2 (08:30→09:00)
[2021-07-21] MEDS: AMIODARONE HCL 200 MG TAB PO SCH ×2 (08:30→09:00)
[2021-07-21] MEDS: APIXABAN 2.5 MG TABLET PO SCH ×2 (08:30→09:00)
[2021-07-21] MEDS: MEMANTINE HCL 10 MG TABLET PO SCH ×2 (08:30→09:00)
[2021-07-21] MEDS: NACHLORIDE 0.45% IV SCH (08:31)
[2021-07-21] MEDS: KCL IV SCH (08:31)
[2021-07-21] MEDS: ENSURE HIGH PROTEIN 237 ML CAN PO SCH (08:31)
[2021-07-21] MEDS: LATANOPROST 0.005% 2.5ML OPTH OPTH SCH (08:32)
[2021-07-21] MEDS: JUVEN PACKET PO SCH (08:32)
[2021-07-21] MEDS: VANCOMYCIN 1.25 GM in NA CHLORIDE 0.9% 250 ML IVPB SCH ×2 (09:00→09:35)
--- NOTE | 2021-07-21 10:16 | P.DS ---
Admission Date: 07/17/21 Discharge Date: 07/21/21 Primary Care Provider: alf Disposition: TRANSFER TO [facility] Comment: with Hospice Discharge Condition: GOOD Reason for Admission: Diarrhea Consultations: Cardiology-Dr. See Nephrology-Dr. Vences Procedures: COVID: Negative Chest x-ray: Unremarkable CT Scan AB/Pelvis: COMPARISON: Abdomen Pelvis Wo Contrast dated 04/23/2017 TECHNIQUE: Axial [address] imaging of the abdomen and pelvis was performed without IV contrast. No IV contrast was given because of allergy, abnormal renal function, patient refusal or physician request. No oral contrast administered. All CT scans are performed using dose optimization technique as appropriate and may include automated exposure control or mA/KV adjustment according to patient size. FINDINGS: No acute pleural or parenchymal finding. Trace amount of pleural f luid is seen. Mild cardiomegaly is present without pericardial effusion. Cardiac valve and aortic calcifications are present. Nodular liver capsule contour is present. No focal lesions seen on noncontrast imaging. No splenomegaly or focal splenic finding. No acute pancreatic process seen. Distended gallbladder contains 3 large gallstones near the neck. Stones were seen on the [address] finding of gallbladder wall thickening or edema. No biliary tree dilatation. No hydronephrosis or suspicious renal mass. Small nonobstructing calyx calculi are seen. No significant adrenal finding. Isodense renal masses and pyelonephritis cannot be excluded in the absence of IV contrast. Urinary bladder is contracted around a Rocha catheter. Pelvic floor assessment is significantly limited due to the bilateral hip prosthesis spray artifact. No gastric dilatation. Wall thickness is accentuated by absence of gastric lumen content. Small bowel loops are not dilated. Moderate stool volume is seen in the colon. Wyman of the colon all appear mildly prominent with no focal mass lesion. No free air or pneumatosis. Trace amount of free intraperitoneal fluid present. No hernia, mass or bulky lymphadenopathy. No suspicious bony findings. Prominent degenerative changes are present. Arterial tree calcifications are present. IVC filter is in place. IMPRESSION: No bowel obstruction, free air or surgically emergent finding. Mild wall thickening throughout the colon may reflect a mild pancolitis. Wall edema from electrolyte imbalance is possible as well. ECHO: CATHERIZATION: NO SURGERY: NO PROSTHETIC VALVE: NO PACEMAKER: NO MEASUREMENTS (cm) DIASTOLIC (NORMALS) SYSTOLIC (NORMALS) IVSd 1.1 (0.6-1.2) LA Diam 3.0 (1.9-4.0) LVEF 62% LVIDd 3.2 (3.5-5.7) LVIDs 2.1 (2.0-3.5) %FS 33% LVPWd 1.1 (0.6-1.2) Ao Diam 2.6 (2.0-3.7) 2 DIMENSIONAL ASSESSMENT: RIGHT ATRIUM: LEFT ATRIUM: RIGHT VENTRICLE: LEFT VENTRICLE: TRICUSPID VALVE: MITRAL VALVE: MITRAL ANNULAR CALCIFICATION PULMONIC VALVE: NORMAL AORTIC VALVE: SCLEROSIS PERICARDIAL EFFUSION: AORTIC ROOT: LEFT VENTRICULAR WALL MOTION: DOPPLER/COLOR FLOW: COMMENTS: ATRIAL FIBRILLATION WITH RAPID VENTRICULAR RESPONSE. NORMAL LEFT VENTRICULAR EJECTION FRACTION AND SIZE. MITRAL ANNULAR CALCIFICATION. AORTIC SCLEROSIS. Medical Problem List: Diarrhea with pancolitis secondary to C. difficile colitis with leukocytosis complicated with septic shock and bacteremia, blood culture showing staph epidermidis Acute renal failure secondary to above with history of chronic renal disease stage III Atrial fibrillation on chronic anticoagulation therapy with RVR Hypertension Diabetes mellitus type 2 GERD Early Alzheimer's, advanced Depression Brief History of Present Illness: 85-year-old female with history of dementia, atrial fibrillation on chronic anticoagulation therapy, hypertension, GERD, depression and diabetes. Patient presented to the emergency room with increasing diarrhea. No evidence of fever noted. Dehydration also noted. Report came from the son who was present. Son reports patient with history of multiple medical issues. Patient was sent to the ER for further evaluation. In the ER patient was evaluated. Patient appeared septic. Blood pressures were low. Patient given IV fluid bolus. White count 49, hemoglobin 12. Platelet count 286. Sodium 143, potassium 2.8. BUN is 67, creatinine 2.97 with a GFR of 18. Glucose 197. Procalcitonin elevated. Possible UTI noted. Patient admitted for treatment. Hospital Course: Patient presented with diarrhea secondary to pancolitis. CT scan revealed pancolitis. Patient found to be positive for C. difficile colitis. This was complicated with septic shock and bacteremia. Blood cultures were positive for staph epidermidis. The patient improved with IV antibiotic therapyvancomycin and oral vancomycin. White count improved. Her condition improved but patient with early onset Alzheimer's that is advanced was noted. Patient had poor appetite. She refused medicine as well. A lengthy discussion was addressed in detail with son who is medical power of client strategist. Son expressed that the patient was DO NOT RESUSCITATE. Son also expressed that the patient had a living will that express no feeding tube. After further evaluation and discussion son has decided that the patient can return back to the group home with hospice in place. Hospice did evaluate the patient and agreed with plan of care. Bacteremia will not be treated as the son did not want her to go through having a PICC line placed. At the very least the patient will be provided oral vancomycin 125 mg every 6 hours for 10 days. Patient may or may not take medication. If the patient continues to decline medication and worsens with decreased appetite hospice will continue with comfort measures only. Social work to arrange for patient to return back to the group home. Patient with acute renal failure secondary to above with history of chronic renal disease stage III. Patient improved with IV fluids. Patient renal function appears back to baseline. Patient will continue with hospice. Patient with atrial fibrillation previously on chronic anticoagulation therapy. Patient had rapid ventricular rate. Patient required IV amiodarone. This was transitioned to amiodarone 200 mg 1 pill twice daily. Patient previously taking Eliquis in the past. Echocardiogram shows normal ejection fraction. No further intervention required. At discharge patient may continue with amiodarone 200 mg 1 pill twice daily. Will recommend to discontinue Eliquis at discharge as the patient will enter hospice and patient high risk for fall, bleeding. Patient with hypertension. Patient previously on metoprolol and losartan hydrochlorothiazide. Patient initially required vasopressor therapy due to hypotension related to septic shock. Blood pressure has improved. At discharge patient may continue with losartan 25 mg daily. Hold if blood pressure systolic less than 110. Further adjustment in medication can be done by group home. Patient with history of diabetes mellitus type 2. Hemoglobin A1c 5.4. No need for medication at discharge. Patient with GERD. At discharge we will continue with Protonix 40 mg daily. As mentioned above patient with early onset Alzheimer's. Her Alzheimer's is advanced. Patient with poor intake. Son clearly understands her condition. Patient will continue with galantamine 4 mg 1 pill twice daily and Namenda 5 mg 1 pill twice daily. Continue with hospice. As the patient declines hospice will continue with comfort measures. Patient with depression. At discharge patient will continue with sertraline 25 mg daily. Patient to return to group home with hospice in place. If her condition declines continue comfort measures only. Hospice to further address. Vital Signs/Physical Exam: Temp Pulse Resp BP Pulse Ox 97.2 F 86 25 H 133/63 85 L 07/21/21 08:00 07/21/21 09:00 07/21/21 09:00 07/21/21 09:00 07/21/21 09:00 General: Alert, Demented (Severe Alzheimer's) HEENT: Atraumatic Neck: Supple Respiratory: Clear to auscultation bilaterally, Normal air movement Cardiovascular: Normal pulses, Regular rate/rhythm Gastrointestinal: Normal bowel sounds, No tenderness, No masses, No rebound, No guarding Neurological: Normal speech, Normal strength at 5/5 x4 extr, Normal tone, Dementia (Severe) Laboratory Data at Discharge: WBC 11.60 K/uL (4.3-10.9) H D 07/21/21 05:19 Hgb 11.5 g/dL (12.0-15.0) L 07/21/21 05:19 Hct 35.2 % (36.0-45.0) L 07/21/21 05:19 Plt Count 204 K/uL (152-406) 07/21/21 05:19 PT 19.8 SECONDS (9.5-12.5) H 07/17/21 12:47 INR 1.71 07/17/21 12:47 APTT 28.2 SECONDS (24.3-36.9) 07/17/21 12:47 Sodium 141 mmol/L (136-145) 07/21/21 05:19 Potassium 4.2 mmol/L (3.5-5.1) 07/21/21 05:19 BUN 53 mg/dL (7-18) H 07/21/21 05:19 Creatinine 1.43 mg/dL (0.55-1.3) H 07/21/21 05:19 Glucose 114 mg/dL (74-106) H 07/21/21 05:19 Magnesium 2.0 mg/dL (1.8-2.4) 07/21/21 05:19 Total Bilirubin 0.4 mg/dL (0.2-1.0) 07/20/21 04:33 AST 26 U/L (15-37) 07/20/21 04:33 ALT 17 U/L (12-78) 07/20/21 04:33 Alkaline Phosphatase 81 U/L (45-117) 07/20/21 04:33 Lipase 18 U/L (73-393) L 07/17/21 12:47 Home Medications: Latanoprost Ophth [Xalatan 0.005%*] 1 drop EACH EYE DAILY 04/23/17 Amiodarone HCl [Cordarone*] 200 mg PO BID #60 tab 07/21/21 Losartan Potassium [Cozaar*] 25 mg PO DAILY #30 tablet 07/21/21 Memantine HCl [Namenda*] 5 mg PO BID tablet 07/21/21 Pantoprazole [Protonix Tab*] 40 mg PO ACB #30 tab 07/21/21 Sertraline [Zoloft*] 25 mg PO DAILY tab 07/21/21 Vancomycin HCl [Vancocin HCl] 125 mg PO QID #40 capsule 07/21/21 New Medications: Amiodarone HCl [Cordarone*] 200 mg PO BID #60 tab Losartan Potassium [Cozaar*] 25 mg PO DAILY #30 tablet Pantoprazole [Protonix Tab*] 40 mg PO ACB #30 tab Vancomycin HCl [Vancocin HCl] 125 mg PO QID #40 capsule Physician Discharge Instructions: Patient presented with diarrhea secondary to pancolitis. CT scan revealed pancolitis. Patient found to be positive for C. difficile colitis. This was complicated with septic shock and bacteremia. Blood cultures were positive for staph epidermidis. The patient improved with IV antibiotic therapyvancomycin and oral vancomycin. White count improved. Her condition improved but patient with early onset Alzheimer's that is advanced was noted. Patient had poor appetite. She refused medicine as well. A lengthy discussion was addressed in detail with son who is medical power of client strategist. Son expressed that the patient was DO NOT RESUSCITATE. Son also expressed that the patient had a living will that express no feeding tube. After further evaluation and discussion son has decided that the patient can return back to the group home with hospice in place. Hospice did evaluate the patient and agreed with plan of care. Bacteremia will not be treated as the son did not want her to go through having a PICC line placed. At the very least the patient will be provided oral vancomycin 125 mg every 6 hours for 10 days. Patient may or may not take medication. If the patient continues to decline medication and worsens with decreased appetite hospice will continue with comfort measures only. Social work to arrange for patient to return back to the group home. Patient with acute renal failure secondary to above with history of chronic renal disease stage III. Patient improved with IV fluids. Patient renal function appears back to baseline. Patient will continue with hospice. Patient with atrial fibrillation previously on chronic anticoagulation therapy. Patient had rapid ventricular rate. Patient required IV amiodarone. This was transitioned to amiodarone 200 mg 1 pill twice daily. Patient previously taking Eliquis in the past. Echocardiogram shows normal ejection fraction. No further intervention required. At discharge patient may continue with amiodarone 200 mg 1 pill twice daily. Will recommend to discontinue Eliquis at discharge as the patient will enter hospice and patient high risk for fall, bleeding. Patient with hypertension. Patient previously on metoprolol and losartan hydrochlorothiazide. Patient initially required vasopressor therapy due to hypotension related to septic shock. Blood pressure has improved. At discharge patient may continue with losartan 25 mg daily. Hold if blood pressure systolic less than 110. Further adjustment in medication can be done by group home. Patient with history of diabetes mellitus type 2. Hemoglobin A1c 5.4. No need for medication at discharge. Patient with GERD. At discharge we will continue with Protonix 40 mg daily. As mentioned above patient with early onset Alzheimer's. Her Alzheimer's is advanced. Patient with poor intake. Son clearly understands her condition. Patient will continue with galantamine 4 mg 1 pill twice daily and Namenda 5 mg 1 pill twice daily. Continue with hospice. As the patient declines hospice will continue with comfort measures. Patient with depression. At discharge patient will continue with sertraline 25 mg daily. Patient to return to group home with hospice in place. If her condition declines continue comfort measures only. Hospice to further address. Diet: AHA Activity: Fall precautions Followup: Fritz Preciado FNP [Primary Care Provider] - Time spent managing pt's care (in minutes): 55
[2021-07-21 12:15] VITALS: BP 133/64; TEMP 97.9
--- NOTE | 2021-07-21 12:16 | PN ---
Date of Progress Note: 07/21/2021 Subjective: The patient was seen and examined at bedside. She continues to have failure to thrive. She has had poor p.o. intake. I have been informed that the patient has been switched over to [facility] and is being transferred to longterm on hospice. Objective: Vital Signs: Have been reviewed and are stable. General: She appears cachectic, malnourished. HEENT: Atraumatic head. Extremities: Showed trace amount of edema. Laboratory Data: Showing improving WBC count, stable hemoglobin, hematocrit, and platelet count. CB C showing improving creatinine of 1.4, and electrolytes are also stable. Current Medications: Have been reviewed in detail. Impression: 1.Acute renal failure secondary to acute tubular necrosis, improving, nonoliguric. 2.Failure to thrive with poor p.o. intake. 3.Clostridium difficile colitis with severe malnutrition, improving on p.o. vancomycin. 4.Advanced dementia. 5.Severe malnutrition. Plan: Patient's renal function has improved. We will sign off on the case. Continue gentle hydrati on while she remains in the hospital. She is being discharged on hospice. VV/MODL Voice ID: [id number] Report ID: [id number]
[2021-07-21] MEDS ORDERED: LOSARTAN POTASSIUM 50 MG TABLET PO SCH (17:00)
== END 2021-07-21 13:20 | DRG 871 ==
LOC: ER 12:33 → ERHOLD 16:48 → 3RD-ICU 19:18
PROVIDERS: ADMIT Family Medicine; ATTEND Family Medicine
DX: A41.9 Sepsis, unspecified organism (principal); R65.21 Severe sepsis with septic shock; N17.0 Acute kidney failure with tubular necrosis; E43 Unspecified severe protein-calorie malnutrition; A04.72 Enterocolitis due to Clostridium difficile, not specified as recurrent; I95.9 Hypotension, unspecified; I48.91 Unspecified atrial fibrillation; F32.A Depression, unspecified; G30.0 Alzheimer's disease with early onset; F02.80 Dementia in other diseases classified elsewhere, unspecified severity, without behavioral disturbance, psychotic disturbance, mood disturbance, and anxiety; E11.22 Type 2 diabetes mellitus with diabetic chronic kidney disease; I12.9 Hypertensive chronic kidney disease with stage 1 through stage 4 chronic kidney disease, or unspecified chronic kidney disease; N18.30 Chronic kidney disease, stage 3 unspecified; K21.9 Gastro-esophageal reflux disease without esophagitis; E87.6 Hypokalemia; Z88.0 Allergy status to penicillin; Z88.1 Allergy status to other antibiotic agents; Z79.01 Long term (current) use of anticoagulants; Z79.899 Other long term (current) drug therapy; Z66 Do not resuscitate; Z68.29 Body mass index [BMI] 29.0-29.9, adult; Z20.822 Contact with and (suspected) exposure to COVID-19
CPT/HCPCS: 36415; 51702; 71045; 74176; 80048; 80053; 80076; 80202; 81003; 81015; 82550; 82947; 83036; 83605; 83690; 83735; 84132; 84145; 84439; 84443; 84484; 85025; 85610; 85730; 87040; 87045; 87046; 87077; 87086; 87088; 87186; 87205; 87324; 87425; 87449; 89055; 93005; 93306; 97110; 97161; 99291; 99292; J0282; J0692; J1160; J2310; J2370; J3370; J3480; J7030; J7050; J7060; U0003